=== PATIENT | male | born 1950 | race Hispanic/Latino ===

== ENCOUNTER 2017-11-21 09:02 | Emergency (ER) | payer BC, OTHER ==
[2017-11-21 09:16] VITALS: RESP 16; BMI 34.0
[2017-11-21 09:30] VITALS: TEMP 97.9; O2SAT 99
--- NOTE | 2017-11-21 11:13 | RAD ---
PROCEDURE: Radiographs of the right humerus. HISTORY: arm pain s/p trauma COMPARISON: None. FINDINGS: BONES: There is some bony thickening in the midshaft of the humerus. This is most likely secondary to a previous fracture. Clinical correlation is suggested SOFT TISSUES: Normal. OTHER FINDINGS: None. IMPRESSION: No acute findings
--- NOTE | 2017-11-21 11:14 | RAD ---
PROCEDURE: Radiographs of the Right Shoulder HISTORY: shoulder pain s/p trauma COMPARISON: No prior. FINDINGS: BONES: There is an area of cortical thickening in the mid humerus most likely due to previous fracture JOINTS: Normal. Glenohumeral and acromioclavicular joints preserved. No osteoarthritis. SOFT TISSUES: Normal. OTHER FINDINGS: None. IMPRESSION: No acute findings
--- NOTE | 2017-11-21 11:16 | RAD ---
PROCEDURE: Right Knee Radiographs. HISTORY: knee pain COMPARISON: None. FINDINGS: BONES: Normal. No fracture. JOINTS: Normal. No osteoarthritis. JOINT EFFUSION: None. OTHER FINDINGS: Mild degenerative changes IMPRESSION: No acute findings
--- NOTE | 2017-11-21 11:21 | ED PDOC ---
Arrival/HPI - General Chief Complaint: Trauma Time Seen by Provider: 11/21/17 09:29 Historian: Patient - History of Present Illness Narrative History of Present Illness (Text): 11/21/17 11:17 67yo male with PMHx of hypertension who was bib BLS for right shoulder/upper arm pain s/p trauma this morning. Patient states he slipped on a side walk and fell landing on his right shoulder this morning. Denies hitting his head anywhere. States he also bruised his right knee and admit mild pain to the knee. Denies LOC, nausea, focal weakness, any other complaint. Past Medical History - Provider Review Nursing Documentation Reviewed: Yes - Cardiac Hx Hypertension: Yes Hx Pacemaker: No - Hematological/Oncological Hx Blood Transfusions: No Hx Blood Transfusion Reaction: No - Musculoskeletal/Rheumatological Hx Musculoskeletal Disorders: No - Psychiatric Hx Emotional Abuse: No Hx Physical Abuse: No Hx Substance Use: No - Surgical History Hx Thyroidectomy: Yes - Anesthesia Hx Anesthesia Reactions: No Hx Malignant Hyperthermia: No - Suicidal Assessment Feels Threatened In Home Enviroment: No Family/Social History - Physician Review Nursing Documentation Reviewed: Yes Family/Social History: Unknown Family HX Smoking Status: Former Smoker Hx Alcohol Use: Yes (OCCASIONAL) Hx Substance Use: No Allergies/Home Meds Allergies/Adverse Reactions: Allergies No Known Allergies Allergy (Verified 02/28/13 10:44) Home Medications: Home Meds Medication Instructions Recorded Confirmed Levothyroxine Sodium 0.2 mg PO DAILY 03/01/13 11/21/17 [Levothyroxine] Lisinopril 5 mg PO DAILY 03/01/13 11/21/17 Review of Systems - Physician Review All systems were reviewed & negative as marked: Yes - Review of Systems Constitutional: Normal Eyes: Normal ENT: Normal Respiratory: Normal Cardiovascular: Normal Gastrointestinal: Normal Genitourinary Male: Normal Musculoskeletal: Arthralgias (right shoulder/knee) Skin: Normal Neurological: Normal Endocrine: Normal Hemo/Lymphatic: Normal Psychiatric: Normal Physical Exam Vital Signs Reviewed: Yes Vital Signs Temp Pulse Resp BP Pulse Ox 11/21/17 12:01 97.9 F 88 16 150/83 99 11/21/17 10:54 82 16 153/82 H 99 11/21/17 09:16 97.9 F 88 16 99 11/21/17 09:11 97.6 F 87 16 203/101 H 98 Temperature: Afebrile Blood Pressure: Normal Pulse: Regular Respiratory Rate: Normal Appearance: Positive for: Well-Appearing, Non-Toxic, Comfortable Pain Distress: None Mental Status: Positive for: Alert and Oriented X 3 - Systems Exam Head: Present: Atraumatic, Normocephalic Pupils: Present: PERRL Extroacular Muscles: Present: EOMI Conjunctiva: Present: Normal Mouth: Present: Moist Mucous Membranes Neck: Present: Normal Range of Motion Respiratory/Chest: Present: Clear to Auscultation, Good Air Exchange. No: Respiratory Distress, Accessory Muscle Use Cardiovascular: Present: Regular Rate and Rhythm, Normal S1, S2. No: Murmurs Abdomen: Present: Normal Bowel Sounds. No: Tenderness, Distention, Peritoneal Signs Back: Present: Normal Inspection Upper Extremity: Present: NORMAL PULSES, Tenderness (right shoulder/upper arm), Neurovascularly Intact. No: Cyanosis, Edema, Normal ROM (Decreased on abduction up to 90degree secondary to pain), Swelling, Erythema, Temperature Abnormalties, Deformity Lower Extremity: Present: Normal Inspection, NORMAL PULSES, Normal ROM, Neurovascularly Intact, Other (superfical abrasion to right anterior knee). No : Edema, Tenderness, Swelling, Deformity Neurological: Present: GCS=15, CN II-XII Intact, Speech Normal Skin: Present: Warm, Dry, Normal Color. No: Rashes Psychiatric: Present: Alert, Oriented x 3, Normal Insight, Normal Concentration Medical Decision Making ED Course and Treatment: 11/21/17 19:46 Right knee xray - Negative right shoulder/humerus negative Arm placed on a sling Pt declined pain medication, but later agreed to take Toradol. His BP improved. Result was DW the pt. He was referred to his PMD/ortho - RAD Interpretation Radiology Orders: 11/21/17 09:30 HUMERUS RIGHT [RAD] Stat SHOULDER RIGHT [RAD] Stat 11/21/17 09:31 KNEE RIGHT 2 VIEWS (AP & LAT) [RAD] Stat - Medication Orders Current Medication Orders: Discontinued Medications Ketorolac Tromethamine (Toradol) 60 mg IM STAT STA Stop: 11/21/17 11:34 Last Admin: 11/21/17 11:43 Dose: 60 mg MAR Pain Assessment Document 11/21/17 11:43 MS (Rec: 11/21/17 11:43 MS [id number]) Pain Reassessment Is this a pain reassessment? No Sleep Is patient sleeping during reassessment? No Presence of Pain Presence of Pain Yes Pain Scale Used Pain Scale Used Numeric Location Left, Right or Bilateral Right Pain Location Body Site Arm Description Description Intermittent Intensity of Pain at present 8 IM Administration Charges Document 11/21/17 11:43 MS (Rec: 11/21/17 11:43 MS [id number]) Injection Site MAR Injection Site Right Deltoid Charges for Administration # of IM Administrations 1 Disposition/Present on Arrival - Present on Arrival Any Indicators Present on Arrival: No History of DVT/PE: No History of Uncontrolled Diabetes: No Urinary Catheter: No History of Decub. Ulcer: No History Surgical Site Infection Following: None - Disposition Have Diagnosis and Disposition been Completed?: Yes Diagnosis: Shoulder pain, Knee pain Disposition: HOME/ ROUTINE Disposition Time: 11:25 Patient Plan: Discharge Condition: STABLE Discharge Instructions (ExitCare): Shoulder Pain (DC), Knee Pain Additional Instructions: follow up with your doctor/Orthopedist Return to ED for nay new or worsening symptoms Referrals: Champ Cantu MD [Primary Care Provider] - Follow up with primary Maggy Myers MD [Staff Provider] - Follow up with primary Forms: [employer] (Ukrainian)
[2017-11-21 12:02] VITALS: BP 150/83; PULSE 88
== END 2017-11-21 12:01 | disposition home or self-care (01) ==
LOC: ED 09:02
DX: M25.511 Pain in right shoulder (principal); M25.561 Pain in right knee; I10 Essential (primary) hypertension; Z87.891 Personal history of nicotine dependence
CPT/HCPCS: 73030; 73060; 73560; 96372; 99285; J1885

== ENCOUNTER 2018-07-16 12:14 | Inpatient (IN) | payer BC, MEDICARE ==
[2018-07-16 12:48] VITALS: BMI 35.4
--- NOTE | 2018-07-16 13:46 | ED PDOC ---
Arrival/HPI - General Chief Complaint: Male Genitourinary Time Seen by Provider: 07/16/18 13:29 Historian: Patient - History of Present Illness Narrative History of Present Illness (Text): 07/16/18 13:42 67 year old male, with past medical history of hypertension and nephrolithiasis, presents to the Emergency department accompanied by complaining of fever, chills, sweats and decreased urinary output since 2 days. Patient informs taking Tylenol this morning with improvement to symptoms. Patient reports visiting Dr. Cantu with the presented symptoms, who subsequently referred patient to the Emergency department for medical evaluation. Patient denies any other associated somatic complaints. Patient denies any headache, dizziness, chest pain, shortness of breath, dyspnea on exertion, cough, abdominal pain, nausea, vomiting, diarrhea, back pain, neck pain, hematuria, or any other complaints. PMD: Dr. Cantu Urologist: Dr. Welch Time/Duration: < week Symptom Onset: Gradual Symptom Course: Unchanged Activities at Onset: Light Context: Other (Referred by Dr. Cantu) Past Medical History - Provider Review Nursing Documentation Reviewed: Yes - Cardiac Hx Hypertension: Yes Hx Pacemaker: No - Hematological/Oncological Hx Blood Transfusions: No Hx Blood Transfusion Reaction: No - Musculoskeletal/Rheumatological Hx Musculoskeletal Disorders: No - Psychiatric Hx Emotional Abuse: No Hx Physical Abuse: No Hx Substance Use: No - Surgical History Hx Thyroidectomy: Yes - Anesthesia Hx Anesthesia: Yes Hx Anesthesia Reactions: No Hx Malignant Hyperthermia: No - Suicidal Assessment Feels Threatened In Home Enviroment: No Family/Social History - Physician Review Nursing Documentation Reviewed: Yes Family/Social History: Unknown Family HX Smoking Status: Former Smoker Hx Alcohol Use: Yes (OCCASIONAL) Hx Substance Use: No Allergies/Home Meds Allergies/Adverse Reactions: Allergies No Known Allergies Allergy (Verified 02/28/13 10:44) Home Medications: Home Meds Medication Instructions Recorded Confirmed Levothyroxine Sodium 0.2 mg PO DAILY 03/01/13 11/21/17 [Levothyroxine] Lisinopril 5 mg PO DAILY 03/01/13 11/21/17 Review of Systems - Physician Review All systems were reviewed & negative as marked: Yes - Review of Systems Constitutional: Fevers, Night Sweats Respiratory: absent: SOB, Cough Cardiovascular: absent: Chest Pain Gastrointestinal: absent: Abdominal Pain, Diarrhea, Nausea, Vomiting Genitourinary Male: Urinary Output Changes. absent: Hematuria Musculoskeletal: absent: Back Pain, Neck Pain Neurological: absent: Headache, Dizziness Physical Exam - Physical Exam Narrative Physical Exam (Text): 07/16/18 13:47 Gen: VS reviewed, alert, well developed, well nourished, nontoxic, mild distress. ENT: normal pharynx. Dry mucous membranes. Eye: EOMI, PERRL. Neck: no JVD, supple, no adenopathy. CV: regular rate, regular rhythm, no rubs, no murmur, no gallops, S1, S2, pulses equal and strong. Pulm: no distress, clear to auscultation, no wheeze, no rhonchi, breath sounds equal, no rales. Abd: soft, nontender, no guarding, no rebound, no rigidity, normal bowel sounds. Ext: no edema. Skin: good color, no rash, no cyanosis. Psych: responds appropriately to questions, normal affect. Neuro: oriented x 3, CN2-12 intact grossly, motor intact, sensation intact. Vital Signs Reviewed: Yes Vital Signs Temp Pulse Resp BP Pulse Ox 07/16/18 12:48 98.4 F 74 18 148/86 95 Temperature: Afebrile Blood Pressure: Normal Pulse: Regular Respiratory Rate: Normal Appearance: Positive for: Well-Appearing, Non-Toxic, Comfortable Pain Distress: None Mental Status: Positive for: Alert and Oriented X 3 Medical Decision Making ED Course and Treatment: 07/16/18 13:31 Impression: 67 year old male presents to the Emergency department complaining of fever, sweats and decreased urinary output. Plan: -- VBG -- CT of Abdomen/Pelvis -- IV Fluids -- Blood Culture -- Urine Culture -- Urinalysis -- Reassess and disposition Prior Visits: Notes and results from previous visits were reviewed. Progress Notes: 07/16/18 16:10 admit accepted by hospitalist, dr. tate, patient to be admitted for iv abx of pyelonephritis, no hemodynamic compromise, patient remained stable throughout ED course. patient's urologist is dr. welch - RAD Interpretation Narrative RAD Interpretations (Text): 07/16/18 15:40 CT of Abdomen reviewed by radiologist, shows: FINDINGS: LOWER THORAX: Unremarkable. LIVER: Unremarkable. No gross lesion or ductal dilatation. GALLBLADDER AND BILE DUCTS: Unremarkable. PANCREAS: Unremarkable. No gross lesion or ductal dilatation. SPLEEN: Unremarkable. ADRENALS: Unremarkable. No mass. KIDNEYS AND URETERS: There is mild perinephric stranding around the right kidney. Both renal collecting systems are mildly dilated. The ureters are also mildly dilated. There are no obstructing ureteral stones visualized. There is a layer of Calcium in the right side of the bladder. There is no discrete stones seen in the bladder. VASCULATURE: Unremarkable. No aortic aneurysm. Minimal aortic calcification BOWEL: Unremarkable. No obstruction. No gross mural thickening. APPENDIX: Unremarkable. Normal appendix. PERITONEUM: Unremarkable. No free fluid. No free air. LYMPH NODES: Unremarkable. No enlarged lymph nodes. BLADDER: As above REPRODUCTIVE: Prostate is calcified but normal in size BONES: No acute fracture. OTHER FINDINGS: None. IMPRESSION: There is mild perinephric stranding around the right kidney. Both renal collecting systems and ureters are mildly dilated. There are no obstructing ureteral stones visualized. There is a layer of Calcium in the right side of the bladder. There are no discrete stones seen in the bladder. Care Provider: Radiologist - Scribe Statement The provider has reviewed the documentation as recorded by the Scribe Tosin Salcido. All medical record entries made by the Scribe were at my direction and personally dictated by me. I have reviewed the chart and agree that the record accurately reflects my personal performance of the history, physical exam, medical decision making, and the department course for this patient. I have also personally directed, reviewed, and agree with the discharge instructions and disposition. Disposition/Present on Arrival - Present on Arrival Any Indicators Present on Arrival: No History of DVT/PE: No History of Uncontrolled Diabetes: No Urinary Catheter: No History of Decub. Ulcer: No History Surgical Site Infection Following: None - Disposition Have Diagnosis and Disposition been Completed?: Yes Diagnosis: Pyelonephritis Disposition: HOSPITALIZED Disposition Time: 16:11 Patient Plan: Admission Condition: STABLE Referrals: Champ Cantu MD [Primary Care Provider] - Follow up with primary Forms: [employer] (Nicaraguan)
[2018-07-16] MEDS: Sodium Chloride 0.9% 1,000 ML IV SCH ×2 (14:58→23:33)
[2018-07-16 15:00] LABS: BASO # 0.01 K/mm3 (0.0-2.0); BASO % 0.1 % (0.0-3.0); GRAN # 8.81 (1.4-6.5); GRAN % 85.2 % (50.0-68.0); HEMOGLOBIN 14.7 g/dL (14.0-18.0); LYMPH # 0.3 (1.2-3.4); MEAN CELL VOLUME 88.8 fl (80.0-105.0); MEAN CORPUSCULAR HEMOGLOBIN 30.5 pg (25.0-35.0); MEAN CORPUSCULAR HGB CONC 34.3 g/dl (31.0-37.0); MEAN PLATELET VOLUME 11.3 fl (7.0-11.0); MONO # 1.2 (0.1-0.6); MONO % 11.7 % (1.0-6.0); PLATELET COUNT 165 10^3/uL (120.0-450.0); RBC 4.82 10^6/uL (3.5-6.1); RED CELL DISTRIBUTION WIDTH 13.7 % (11.5-14.5); VENOUS BLOOD GAS BASE EXCESS 3.1 mmol/L (0.0-2.0); VENOUS BLOOD GAS PO2 26 mm/Hg (30-55); VENOUS BLOOD PH 7.37 (7.32-7.43); WHITE BLOOD COUNT 10.3 10^3/uL (4.5-11.0)
[2018-07-16 15:13] LABS: ALB/GLOB RATIO 1.1 (1.1-1.8); CALCIUM 8.7 mg/dL (8.4-10.5)
[2018-07-16 15:23] LABS: LYMPHOCYTE 5 % (22.0-35.0); MONOCYTE 10 % (1.0-6.0); NEUTROPHIL 85 % (50.0-70.0); PLATELET ESTIMATE NORMAL (NORMAL)
[2018-07-16 15:32] LABS: URINE BILIRUBIN NEGATIVE (NEGATIVE); URINE BLOOD LARGE (NEGATIVE); URINE GLUCOSE (UA) 250 mg/dL (NEGATIVE); URINE LEUKOCYTE ESTERASE MODERATE Leu/uL (NEGATIVE); URINE PROTEIN 100 mg/dL (<30 mg/dL)
[2018-07-16 15:33] LABS: URINE APPEARANCE SLIGHT-CLOUDY (CLEAR); URINE COLOR YELLOW (YELLOW)
--- NOTE | 2018-07-16 15:35 | CT ---
Date of service: 07/16/2018 PROCEDURE: CT Abdomen and Pelvis without intravenous contrast HISTORY: stone COMPARISON: None. TECHNIQUE: Technique. Contrast dose: Radiation dose: Total exam DLP = 1139.44 mGy-cm. This CT exam was performed using one or more of the following dose reduction techniques: Automated exposure control, adjustment of the mA and/or kV according to patient size, and/or use of iterative reconstruction technique. FINDINGS: LOWER THORAX: Unremarkable. LIVER: Unremarkable. No gross lesion or ductal dilatation. GALLBLADDER AND BILE DUCTS: Unremarkable. PANCREAS: Unremarkable. No gross lesion or ductal dilatation. SPLEEN: Unremarkable. ADRENALS: Unremarkable. No mass. KIDNEYS AND URETERS: There is mild perinephric stranding around the right kidney. Both renal collecting systems are mildly dilated. The ureters are also mildly dilated. There are no obstructing ureteral stones visualized. There is a layer of Calcium in the right side of the bladder. There is no discrete stones seen in the bladder. VASCULATURE: Unremarkable. No aortic aneurysm. Minimal aortic calcification BOWEL: Unremarkable. No obstruction. No gross mural thickening. APPENDIX: Unremarkable. Normal appendix. PERITONEUM: Unremarkable. No free fluid. No free air. LYMPH NODES: Unremarkable. No enlarged lymph nodes. BLADDER: As above REPRODUCTIVE: Prostate is calcified but normal in size BONES: No acute fracture. OTHER FINDINGS: None. IMPRESSION: There is mild perinephric stranding around the right kidney. Both renal collecting systems and ureters are mildly dilated. There are no obstructing ureteral stones visualized. There is a layer of Calcium in the right side of the bladder. There are no discrete stones seen in the bladder.
[2018-07-16] MEDS ORDERED: cefTRIAXone 2 GM IN NS 2 GM/100 ML BAG IVPB STA (15:42)
[2018-07-16 15:50] LABS: URINE BACTERIA LARGE (NEG); URINE EPITHELIAL CELLS 0 - 2 /hpf (0-5); URINE WBC TNTC /hpf (0-6)
[2018-07-16] MEDS ORDERED: Dextrose 50% SYRINGE Inj (50 ml) IV PRN (16:58)
--- NOTE | 2018-07-16 17:18 | CP.PCM.HP ---
<Juan Luis Santillan - Last Filed: 07/16/18 18:24> History of Present Illness - History of Present Illness History of Present Illness: Juan Luis Santillan DO, PGY-1 Hospitalist Admission History and Physical for Dr. Harris CC: fever, chills, dysuria HPI: Mr. Bennett is a 67 year old male with PMH of HTN, nephrolithiasis, thyroid CA (s/p total thyroidectomy), DM2, CAD (s/p stents in ), prostate CA (s/p radiation treatment), and COPD presented to ED with worsening fever, chills, let hargy, increased urinary frequency, and dysuria. He appears acutely ill at the time of examination and most of the history was provided by his at bedside. His states that he has been feeling worse for the past few days and has had worsening dysuria. His Tmax at home was 102.5, she gave him tylenol, and it went down. This prompted them to go and see his PMH, Dr. Cantu, who advised them to go to ED for further evaluation. Currently, he endorses fever, chills, dysuria, increased frequency, and some suprapubic pain with palpation but denies CP, SOB, nausea/vomiting, PARKER, or blurred vision. PMH: HTN, nephrolithiasis, thyroid CA (s/p total thyroidectomy), DM2, CAD (s/p stents in ), prostate CA (s/p radiation treatment), and COPD PSH: PCI with stents in , total thyroidectomy Home medications: omeprazole 40 mg daily, bystolic 10 mg daily, pravastatin 40 mg daily, levothyroxine 0.3 mg daily, lisinopril 20 mg daily, januvia 100 mg daily, glimepiride 2 mg daily Fam Hx: reviewed, non-contributory Soc Hx: former smoker quit 13 years ago, denies alcohol or drug use Present on Admission - Present on Admission Any Indicators Present on Admission: No History of DVT/PE: No History of Uncontrolled Diabetes: No Urinary Catheter: No Decubitus Ulcer Present: No Review of Systems - Constitutional Constitutional: Chills, Fever - Cardiovascular Cardiovascular: absent: Chest Pain, Dyspnea - Respiratory Respiratory: absent: Cough, Dyspnea, Wheezing - Gastrointestinal Gastrointestinal: absent: Abdominal Pain, Nausea, Vomiting - Genitourinary Genitourinary: Change in Urinary Stream, Difficulty Urinating, Dysuria, Flank Pain, Urinary Frequency. absent: Hematuria, Urinary Incontinence - Musculoskeletal Musculoskeletal: Back Pain. absent: Numbness - Neurological Neurological: absent: Confusion, Syncope, Tremor Past Patient History - Past Social History Smoking Status: Former Smoker - CARDIAC Hx Hypertension: Yes Hx Pacemaker: No - HEMATOLOGICAL/ONCOLOGICAL Hx Blood Transfusions: No Hx Blood Transfusion Reaction: No - MUSCULOSKELETAL/RHEUMATOLOGICAL Hx Musculoskeletal Disorders: No - PSYCHIATRIC Hx Emotional Abuse: No Hx Physical Abuse: No Hx Substance Use: No - SURGICAL HISTORY Hx Thyroidectomy: Yes - ANESTHESIA Hx Anesthesia: Yes Hx Anesthesia Reactions: No Hx Malignant Hyperthermia: No Meds Allergies/Adverse Reactions: Allergies Allergy/AdvReac Type Severity Reaction Status Date / Time No Known Allergies Allergy Verified 02/28/13 10:44 Physical Exam - Constitutional Appears: No Acute Distress Additional comments: NAD but acutely ill-appearing, sleepy but arousable - Head Exam Head Exam: ATRAUMATIC, NORMOCEPHALIC - Eye Exam Eye Exam: EOMI, Normal appearance, PERRL - ENT Exam ENT Exam: Mucous Membranes Moist - Neck Exam Neck exam: Positive for: Full Rom, Normal Inspection - Respiratory Exam Respiratory Exam: Clear to Auscultation Bilateral, NORMAL BREATHING PATTERN. absent: Accessory Muscle Use, Rales, Rhonchi, Wheezes, Respiratory Distress - Cardiovascular Exam Cardiovascular Exam: REGULAR RHYTHM, RRR, +S1, +S2. absent: Diastolic murmur, Gallop, Rubs, Systolic Murmur - GI/Abdominal Exam GI & Abdominal Exam: Normal Bowel Sounds. absent: Guarding, Tenderness - Extremities Exam Extremities exam: Positive for: full ROM, normal inspection. Negative for: pedal edema - Back Exam Back exam: NORMAL INSPECTION. absent: CVA tenderness (L), CVA tenderness (R), paraspinal tenderness - Neurological Exam Neurological exam: Alert, Oriented x3 - Psychiatric Exam Psychiatric exam: Normal Affect, Normal Mood - Skin Skin Exam: Dry, Intact, Warm Results - Vital Signs Recent Vital Signs: Last Vital Signs Temp 98.4 F 07/16/18 12:48 Pulse 65 07/16/18 15:47 Resp 18 07/16/18 15:47 BP 141/74 07/16/18 15:47 Pulse Ox 96 07/16/18 15:47 - Labs Result Diagrams: 07/16/18 14:54 07/16/18 14:54 Labs: Laboratory Results - last 24 hr 07/16/18 07/16/18 07/16/18 14:54 14:54 14:54 WBC 10.3 RBC 4.82 Hgb 14.7 Hct 42.8 MCV 88.8 MCH 30.5 MCHC 34.3 RDW 13.7 Plt Count 165 MPV 11.3 H Gran % 85.2 H Lymph % (Auto) 3.0 L [place] % (Auto) 11.7 H Eos % (Auto) 0.0 L Baso % (Auto) 0.1 Gran # 8.81 H Lymph # (Auto) 0.3 L [place] # (Auto) 1.2 H Eos # (Auto) 0.0 Baso # (Auto) 0.01 Neutrophils % (Manual) 85 H Lymphocytes % (Manual) 5 L Monocytes % (Manual) 10 H Platelet Evaluation Normal pO2 26 L VBG pH 7.37 VBG pCO2 51.0 VBG HCO3 29.5 H VBG Total CO2 31.1 H VBG O2 Sat (Calc) 50.0 VBG Base Excess 3.1 H VBG Potassium 4.0 Sodium 136.0 137 Chloride 96.0 L 96 L Glucose 306 H Lactate 2.6 H FiO2 21.0 Potassium 3.9 Carbon Dioxide 29 Anion Gap 16 BUN 41 H Creatinine 2.3 H Est GFR ( Amer) 35 Est GFR (Non-Af Amer) 29 Random Glucose 287 H Calcium 8.7 Total Bilirubin 2.6 H AST 38 ALT 45 Alkaline Phosphatase 83 Total Protein 7.7 Albumin 4.0 Globulin 3.7 Albumin/Globulin Ratio 1.1 Venous Blood Potassium 4.0 Urine Color Urine Appearance Urine pH Ur Specific [place] Urine Protein Urine Glucose (UA) Urine Ketones Urine Blood Urine Nitrate Urine Bilirubin Urine Urobilinogen Ur Leukocyte Esterase Urine RBC Urine WBC Ur Epithelial Cells Urine Bacteria 07/16/18 15:16 WBC RBC Hgb Hct MCV MCH MCHC RDW Plt Count MPV Gran % Lymph % (Auto) [place] % (Auto) Eos % (Auto) Baso % (Auto) Gran # Lymph # (Auto) [place] # (Auto) Eos # (Auto) Baso # (Auto) Neutrophils % (Manual) Lymphocytes % (Manual) Monocytes % (Manual) Platelet Evaluation pO2 VBG pH VBG pCO2 VBG HCO3 VBG Total CO2 VBG O2 Sat (Calc) VBG Base Excess VBG Potassium Sodium Chloride Glucose Lactate FiO2 Potassium Carbon Dioxide Anion Gap BUN Creatinine Est GFR ( Amer) Est GFR (Non-Af Amer) Random Glucose Calcium Total Bilirubin AST ALT Alkaline Phosphatase Total Protein Albumin Globulin Albumin/Globulin Ratio Venous Blood Potassium Urine Color Yellow Urine Appearance Slight-cloudy Urine pH 6.0 Ur Specific [place] 1.020 Urine Protein 100 H Urine Glucose (UA) 250 H Urine Ketones Negative Urine Blood Large H Urine Nitrate Negative Urine Bilirubin Negative Urine Urobilinogen 1.0 H Ur Leukocyte Esterase Moderate H Urine RBC 5 - 10 Urine WBC Tntc Ur Epithelial Cells 0 - 2 Urine Bacteria Large Assessment & Plan - Assessment and Plan (Free Text) Assessment: 67 yo M with PMH of HTN, nephrolithiasis, thyroid CA (s/p total thyroidectomy), DM2, CAD (s/p stents in ), prostate CA (s/p radiation treatment), and COPD presents to ED with sepsis 2/2 pyelonephritis. Plan: 1. Sepsis Likely 2/2 underlying pyelonephritis UA with TNTC pyuria, leukocyte eserase, large blood CTAP c/w R-sided perinephric stranding, although no CVA tenderness on exam Currently lactate 2.6, normotensive, RRR Continue rocephin, zosyn given in ED Monitor closely for s/sx of worsening sepsis or septic shock Continue NS @ 150 cc/hr Repeat VBG shock panel after receiving abx and monitor lactate F/u blood, urine cx, procal results 2. ANIBAL Likely 2/2 underlying sepsis and/or dehydration Continue NS @ 150 Continue to monitor for improvement Hold lisinopril for now If not improving, consider further w/u for ANIBAL including urine electrolytes 3. Hx DM2 Will get baseline A1c for this admission Blood sugar elevated in ED to 287 D/c all oral anti-hyperglycemics while in hospital ISS medium protocol while admitted 6 units of levemir nightly ACHS POC fingerstick glucose HHD consistent CHO diet DVT/GI PPX: Sc heparin, protonx Full Code HHD consistent CHO Monitor on med/surg Case and plan reviewed and discussed with my attending Dr. Steven Santillan, DO IM Resident PGY-1 <Jose Maria Harris - Last Filed: 07/17/18 17:05> Results - Vital Signs Recent Vital Signs: Last Vital Signs Temp 101.5 F H 07/17/18 15:06 Pulse 100 H 07/17/18 15:05 Resp 20 07/17/18 07:42 BP 180/90 H 07/17/18 15:05 Pulse Ox 98 07/17/18 07:42 - Labs Result Diagrams: 07/17/18 15:54 07/17/18 15:20 Labs: Laboratory Results - last 24 hr 07/16/18 07/16/18 07/16/18 14:54 18:47 18:54 WBC RBC Hgb Hct MCV MCH MCHC RDW Plt Count MPV Gran % Lymph % (Auto) [place] % (Auto) Eos % (Auto) Baso % (Auto) Gran # Lymph # (Auto) [place] # (Auto) Eos # (Auto) Baso # (Auto) pCO2 pO2 26 L 76 H HCO3 ABG pH ABG Total CO2 ABG O2 Saturation ABG Base Excess ABG Potassium VBG pH 7.37 7.46 H VBG pCO2 51.0 35.0 L VBG HCO3 29.5 H 24.9 VBG Total CO2 31.1 H 26.0 VBG O2 Sat (Calc) 50.0 97.3 H VBG Base Excess 3.1 H 1.4 VBG Potassium 4.0 3.5 L Sodium 136.0 137.0 Chloride 96.0 L 101.0 Glucose 306 H 311 H Lactate 2.6 H 1.7 FiO2 21.0 21.0 Potassium Carbon Dioxide Anion Gap BUN Creatinine Est GFR ( Amer) Est GFR (Non-Af Amer) POC Glucose (mg/dL) 288 H Random Glucose Hemoglobin A1c Calcium Phosphorus Magnesium Total Bilirubin AST ALT Alkaline Phosphatase Troponin I Total Protein Albumin Globulin Albumin/Globulin Ratio Triglycerides Cholesterol LDL Cholesterol Direct HDL Cholesterol Arterial Blood Potassium Venous Blood Potassium 4.0 3.5 L Influenza Typ A,B (EIA) 07/17/18 07/17/18 07/17/18 06:20 06:20 06:20 WBC 10.8 RBC 4.60 Hgb 14.0 Hct 40.6 L MCV 88.3 MCH 30.4 MCHC 34.5 RDW 14.0 Plt Count 151 MPV 11.0 Gran % 86.2 H Lymph % (Auto) 5.6 L [place] % (Auto) 8.1 H Eos % (Auto) 0.0 L Baso % (Auto) 0.1 Gran # 9.33 H Lymph # (Auto) 0.6 L [place] # (Auto) 0.9 H Eos # (Auto) 0.0 Baso # (Auto) 0.01 pCO2 pO2 HCO3 ABG pH ABG Total CO2 ABG O2 Saturation ABG Base Excess ABG Potassium VBG pH VBG pCO2 VBG HCO3 VBG Total CO2 VBG O2 Sat (Calc) VBG Base Excess VBG Potassium Sodium 140 Chloride 101 Glucose Lactate FiO2 Potassium 3.8 Carbon Dioxide 29 Anion Gap 14 BUN 43 H Creatinine 2.4 H Est GFR ( Amer) 33 Est GFR (Non-Af Amer) 27 POC Glucose (mg/dL) Random Glucose 292 H Hemoglobin A1c 7.6 H Calcium 8.3 L Phosphorus 2.8 Magnesium 2.3 H Total Bilirubin 1.5 H AST 30 ALT 35 Alkaline Phosphatase 85 Troponin I Total Protein 7.2 Albumin 3.5 Globulin 3.7 Albumin/Globulin Ratio 1.0 L Triglycerides 244 H Cholesterol 149 LDL Cholesterol Direct 82 HDL Cholesterol 17 L Arterial Blood Potassium Venous Blood Potassium Influenza Typ A,B (EIA) 07/17/18 07/17/18 07/17/18 07:22 08:30 10:41 WBC RBC Hgb Hct MCV MCH MCHC RDW Plt Count MPV Gran % Lymph % (Auto) [place] % (Auto) Eos % (Auto) Baso % (Auto) Gran # Lymph # (Auto) [place] # (Auto) Eos # (Auto) Baso # (Auto) pCO2 pO2 HCO3 ABG pH ABG Total CO2 ABG O2 Saturation ABG Base Excess ABG Potassium VBG pH VBG pCO2 VBG HCO3 VBG Total CO2 VBG O2 Sat (Calc) VBG Base Excess VBG Potassium Sodium Chloride Glucose Lactate FiO2 Potassium Carbon Dioxide Anion Gap BUN Creatinine Est GFR ( Amer) Est GFR (Non-Af Amer) POC Glucose (mg/dL) 244 H 239 H Random Glucose Hemoglobin A1c Calcium Phosphorus Magnesium Total Bilirubin AST ALT Alkaline Phosphatase Troponin I Total Protein Albumin Globulin Albumin/Globulin Ratio Triglycerides Cholesterol LDL Cholesterol Direct HDL Cholesterol Arterial Blood Potassium Venous Blood Potassium Influenza Typ A,B (EIA) Negative for flu a/b 07/17/18 07/17/18 07/17/18 14:19 14:35 15:20 WBC RBC Hgb Hct MCV MCH MCHC RDW Plt Count MPV Gran % Lymph % (Auto) [place] % (Auto) Eos % (Auto) Baso % (Auto) Gran # Lymph # (Auto) [place] # (Auto) Eos # (Auto) Baso # (Auto) pCO2 39 pO2 104.0 H HCO3 21.0 ABG pH 7.34 L ABG Total CO2 22.2 ABG O2 Saturation 98.4 H ABG Base Excess -4.4 L ABG Potassium 3.8 VBG pH VBG pCO2 VBG HCO3 VBG Total CO2 VBG O2 Sat (Calc) VBG Base Excess VBG Potassium Sodium 140.0 140 Chloride 106.0 104 Glucose 255 H Lactate 4.3 H* FiO2 50.0 Potassium 3.4 L Carbon Dioxide 24 Anion Gap 16 BUN 44 H Creatinine 2.3 H Est GFR ( Amer) 35 Est GFR (Non-Af Amer) 29 POC Glucose (mg/dL) 270 H Random Glucose 283 H Hemoglobin A1c Calcium 8.2 L Phosphorus Magnesium Total Bilirubin 1.5 H AST 33 ALT 40 Alkaline Phosphatase 89 Troponin I 0.04 Total Protein 7.3 Albumin 3.6 Globulin 3.7 Albumin/Globulin Ratio 1.0 L Triglycerides Cholesterol LDL Cholesterol Direct HDL Cholesterol Arterial Blood Potassium 3.8 Venous Blood Potassium Influenza Typ A,B (EIA) 07/17/18 07/17/18 07/17/18 15:30 15:54 16:34 WBC 8.6 RBC 4.67 Hgb 14.3 Hct 41.0 L MCV 87.8 MCH 30.6 MCHC 34.9 RDW 14.1 Plt Count 136 MPV 11.2 H Gran % Lymph % (Auto) [place] % (Auto) Eos % (Auto) Baso % (Auto) Gran # Lymph # (Auto) [place] # (Auto) Eos # (Auto) Baso # (Auto) pCO2 pO2 HCO3 ABG pH ABG Total CO2 ABG O2 Saturation ABG Base Excess ABG Potassium VBG pH VBG pCO2 VBG HCO3 VBG Total CO2 VBG O2 Sat (Calc) VBG Base Excess VBG Potassium Sodium Chloride Glucose Lactate FiO2 Potassium Carbon Dioxide Anion Gap BUN Creatinine Est GFR ( Amer) Est GFR (Non-Af Amer) POC Glucose (mg/dL) 240 H 261 H Random Glucose Hemoglobin A1c Calcium Phosphorus Magnesium Total Bilirubin AST ALT Alkaline Phosphatase Troponin I Total Protein Albumin Globulin Albumin/Globulin Ratio Triglycerides Cholesterol LDL Cholesterol Direct HDL Cholesterol Arterial Blood Potassium Venous Blood Potassium Influenza Typ A,B (EIA) Attending/Attestation - Attestation I have personally seen and examined this patient.: Yes I have fully participated in the care of the patient.: Yes I have reviewed all pertinent clinical information: Yes Notes (Text): 07/17/18 17:02 Medical record note made by the resident after discussion with my direction and input after the patient was personally seen and examined by me. I have reviewed the chart and agree that the record accurately reflects by personal performance of the history, physical exam, data review, and medical decision-making, in the course for the patient. I have also personally directed the plan of care. 67 year old male with PMH of HTN, nephrolithiasis, thyroid CA (s/p total thyroidectomy), DM2, CAD (s/p stents in ), prostate CA , and COPD is admitted with sepsis due to Pyelonephritis and acute renal failure. Agreed with IV zosyn, will follow up blood and urine cultures. Continue IV hydration, follow up BUN/Creatinin with IV hydration. We will hold Lisinopril.Avoid Nephrotoxic medications. Management plan was discussed in detail with patient and . Education was provided.
[2018-07-16] MEDS: Piperacillin/Tazobact 3.375 gm 100 ML IVPB SCH ×2 (17:27→23:55)
[2018-07-16 18:56] LABS: VENOUS BLOOD GAS BASE EXCESS 1.4 mmol/L (0.0-2.0); VENOUS BLOOD GAS PO2 76 mm/Hg (30-55); VENOUS BLOOD PH 7.46 (7.32-7.43)
[2018-07-16] MEDS ORDERED: Sodium Chloride 0.9% 1,000 ML IV STA (20:01)
--- NOTE | 2018-07-16 22:08 | CARD ---
APPROVED REPORT Date of service: 07/16/2018 EKG Measurement Heart [id number] <Conclusion> Normal sinus rhythm Left axis deviation Abnormal ECG
[2018-07-16] MEDS ORDERED: Albuterol-Ipratrop 3 mg / 0.5 (3 ml) UD IH STA (23:10)
[2018-07-16] MEDS: Insulin Reg-MEDIUM-Coverage SC SCH (23:32)
[2018-07-16] MEDS: Insulin Detemir 100 units/ml Vial (Levemir) SC SCH (23:56)
[2018-07-17] MEDS: Sodium Chloride 0.9% 1,000 ML IV SCH (00:59)
[2018-07-17] MEDS: Pantoprazole 40 mg EC Tab PO SCH (05:55)
[2018-07-17 07:16] LABS: BASO # 0.01 K/mm3 (0.0-2.0); BASO % 0.1 % (0.0-3.0); GRAN # 9.33 (1.4-6.5); GRAN % 86.2 % (50.0-68.0); LYMPH # 0.6 (1.2-3.4); LYMPH % 5.6 % (22.0-35.0); MEAN CELL VOLUME 88.3 fl (80.0-105.0); MEAN CORPUSCULAR HEMOGLOBIN 30.4 pg (25.0-35.0); MEAN CORPUSCULAR HGB CONC 34.5 g/dl (31.0-37.0); MONO # 0.9 (0.1-0.6); MONO % 8.1 % (1.0-6.0); RBC 4.6 10^6/uL (3.5-6.1); WHITE BLOOD COUNT 10.8 10^3/uL (4.5-11.0)
[2018-07-17 07:20] LABS: ALBUMIN 3.5 g/dL (3.0-4.8); CALCIUM 8.3 mg/dL (8.4-10.5)
[2018-07-17] MEDS: Insulin Reg-MEDIUM-Coverage SC SCH ×4 (08:28→22:23)
--- NOTE | 2018-07-17 09:30 | RAD ---
Date of service: 07/17/2018 HISTORY: wheezing COMPARISON: Chest radiographs 05/13/2014. FINDINGS: LUNGS: No active pulmonary disease. PLEURA: No significant pleural effusion identified, no pneumothorax apparent. CARDIOVASCULAR: No aortic atherosclerotic calcification present. Cardiomegaly is difficult to exclude however of frontal technique likely magnified true cardiac silhouette. No pulmonary vascular congestion. OSSEOUS STRUCTURES: No significant abnormalities. VISUALIZED UPPER ABDOMEN: Normal. OTHER FINDINGS: None. IMPRESSION: Prominent cardiac silhouette, possibly at least in part related to technical magnification. Clinically correlate further. No pulmonary vascular congestion or infiltrate bilaterally.
[2018-07-17] MEDS: Levothyroxine 200 MCG TAB PO SCH (09:38)
[2018-07-17] MEDS ORDERED: cefTRIAXone 1 gm 1 GM/100 ML BAG IVPB SCH (10:00)
[2018-07-17] MEDS ORDERED: Piperacillin/Tazobact 2.25gm 2.25 GM/100 ML BAG IVPB STA (14:42)
[2018-07-17 14:48] LABS: ARTERIAL BLOOD GAS O2 SAT 98.4 % (95-98); ARTERIAL BLOOD GAS PCO2 39 mm/Hg (35-45); ARTERIAL BLOOD GAS PH 7.34 (7.35-7.45); ARTERIAL BLOOD GAS TCO2 22.2 mmol.L (22-28)
[2018-07-17] MEDS ORDERED: Sodium Chloride 0.9% 1,000 ML IV STA (14:53)
[2018-07-17] MEDS ORDERED: Vancomycin 1gm in NS 250ml 1 GM/250 ML BAG IVPB SCH (15:00)
[2018-07-17] MEDS: MethylPREDNISolone 40 mg Vial IVP SCH ×2 (15:05→22:23)
--- NOTE | 2018-07-17 15:34 | RAD ---
Date of service: 07/17/2018 HISTORY: sob COMPARISON: No prior. FINDINGS: LUNGS: No active pulmonary disease. PLEURA: No significant pleural effusion identified, no pneumothorax apparent. CARDIOVASCULAR: No aortic atherosclerotic calcification present. Moderate cardiomegaly no pulmonary vascular congestion. OSSEOUS STRUCTURES: No significant abnormalities. VISUALIZED UPPER ABDOMEN: Normal. OTHER FINDINGS: None. IMPRESSION: No active disease.
[2018-07-17 15:57] LABS: HEMOGLOBIN 14.3 g/dL (14.0-18.0); MEAN CELL VOLUME 87.8 fl (80.0-105.0); MEAN CORPUSCULAR HEMOGLOBIN 30.6 pg (25.0-35.0); MEAN CORPUSCULAR HGB CONC 34.9 g/dl (31.0-37.0); MEAN PLATELET VOLUME 11.2 fl (7.0-11.0); RBC 4.67 10^6/uL (3.5-6.1); RED CELL DISTRIBUTION WIDTH 14.1 % (11.5-14.5); WHITE BLOOD COUNT 8.6 10^3/uL (4.5-11.0)
--- NOTE | 2018-07-17 16:00 | PCM.RRT ---
<Jr Tsang - Last Filed: 07/17/18 17:35> FORESTRY FOREMAN Nurse Assessment - Situation Date: 07/17/18 Time FORESTRY FOREMAN was called: 14:17 FORESTRY FOREMAN Responder Arrival Time: 14:18 FORESTRY FOREMAN Location:: [address] [place] [address] Room Number: 560 FORESTRY FOREMAN Reason for Call: O2 Saturation below 90% FORESTRY FOREMAN Called By: RN - IV IV Inserted during FORESTRY FOREMAN?: No - Respiratory Oxygen Delivery Method: Nasal Cannula @L/min Oxygen Flow Rate: 2 Received Nebulizer Treatments:: Yes Was the Patient Ventilated with Bag/Mask 100% O2?: No Secretions Suctioned?: No Was the Patient Intubated?: No Was the Patient Placed on a Ventilator?: No - Medication Medications Administered During FORESTRY FOREMAN: Lasix 40 IVP - Diagnostic Test Ordered EKG: Yes Chest X-Ray: Yes CT Scan: No - Stat Labs Ordered FORESTRY FOREMAN Stat Labs Ordered: CBC, BMP, LACTIC ACID, BLOOD C&S X2, ABG CPR started during FORESTRY FOREMAN?: No - Vital Signs Vital Sign: Rapid Response Vital Sign Blood Pressure 240/90 Pulse Rate 110 Respiratory Rate 24 Temperature 101.5 F Oxygen Saturation 87 - Time FORESTRY FOREMAN Ended Time FORESTRY FOREMAN Ended: 15:00 - Vital Signs at end of FORESTRY FOREMAN Vital Signs at end of FORESTRY FOREMAN: Rapid Response End Vital Sign Blood Pressure 180/90 Pulse Rate 100 Respiratory Rate 18 O2 Sat by Pulse Oximetry 100 - Recommendations Notifications: Attending Physician, Family or Designated Caregiver I.Reason for FORESTRY FOREMAN - A) Acute Change in Patient: Subjective: Subjective/Objective FORESTRY FOREMAN was called on this 67 year old male with pertinent medical history of ischemic heart disease and urosepsis for acute shortness of breath and shivering. When I arrived, the patient was unable to provide a history; was at bedside as well as RN and primary team, who all gave history that patient became acutely short of breath, agitated, with sats dropping. Vitals were not stable, with sats of 90%, HR of 110s, BP of 220/90s, and Temp of 101.1. Physical exam revealed wheezes anteriorly and posteriorly but no crackles, no murmur, no bilateral extremity swelling, and soft/nontender abdomen. We gave patient solumederol, 2 duoneb treatments, rectal tylenol, and obtained EKG, troponin, as well as shifting patient to telemetry. ABG revealed 7.34 pH, 39 CO2, will obtain HCO3 from CMP. CXR revealed possible new infiltrate. Assessment 67 year old male with respiratory distress, now resolved, likely 2/2 new onset PNA as well as underlying COPD. Chills likely 2/2 Urosepsis Plan - Obtain EKG, troponin - Will change Rocephin to Zosyn - Transfer to telemetry for closer observation of vitals - Neurological Status (Select all that apply): Alert, Verbal, Follows Commands - Respiratory Oxygen Delivery Method: Nasal Cannula @L/min Oxygen Flow Rate: 2 - Constitutional Appears: Non-toxic, In Acute Distress, Chronically Ill - Head Head Exam: ATRAUMATIC, NORMAL INSPECTION, NORMOCEPHALIC - Eyes Eye Exam: EOMI, Normal appearance, PERRL - Respiratory Exam Respiratory Exam: Wheezes, Respiratory Distress. absent: Stridor - Cardiovascular Exam Cardiovascular Exam: Tachycardia, REGULAR RHYTHM. absent: Murmur - GI/Abdominal Exam GI & Abdominal Exam: Normal Bowel Sounds - Neurological Exam Neurological Exam: Alert, Awake, CN II-XII Intact - Extremities Exam Extremities Exam: Full ROM, Normal Capillary Refill, Normal Inspection <Jose Maria Harris - Last Filed: 07/19/18 17:52> FORESTRY FOREMAN Nurse Assessment - Vital Signs Vital Sign: Rapid Response Vital Sign Blood Pressure 240/90 Pulse Rate 110 Respiratory Rate 24 Temperature 101.5 F Oxygen Saturation 87 - Vital Signs at end of FORESTRY FOREMAN Vital Signs at end of FORESTRY FOREMAN: Rapid Response End Vital Sign Blood Pressure 180/90 Pulse Rate 100 Respiratory Rate 18 O2 Sat by Pulse Oximetry 100 Attending/Attestation - Attestation I have personally seen and examined this patient.: Yes I have fully participated in the care of the patient.: Yes I have reviewed all pertinent clinical information, including history, physical exam and plan: Yes Notes (Text): 07/19/18 17:51 Medical record note made by the resident after discussion with my direction and input after the patient was personally seen and examined by me. I have reviewed the chart and agree that the record accurately reflects by personal performance of the history, physical exam, data review, and medical decision-making, in the course for the patient. I have also personally directed the plan of care
[2018-07-17 16:07] LABS: ALBUMIN 3.6 g/dL (3.0-4.8); CALCIUM 8.2 mg/dL (8.4-10.5)
[2018-07-17 16:19] LABS: TROPONIN I 0.04 ng/mL
--- NOTE | 2018-07-17 16:21 | CARD ---
APPROVED REPORT Date of service: 07/17/2018 EKG Measurement Heart [id number] <Conclusion> Sinus tachycardia with premature atrial complexes Minimal voltage criteria for LVH, may be normal variant Borderline ECG
[2018-07-17 17:47] LABS: CREATININE,RANDOM URINE 50 mg/dL
[2018-07-17 18:48] LABS: VENOUS BLOOD GAS BASE EXCESS -1.6 mmol/L (0.0-2.0); VENOUS BLOOD GAS PO2 106 mm/Hg (30-55); VENOUS BLOOD PH 7.44 (7.32-7.43)
--- NOTE | 2018-07-17 19:41 | CP.PCM.PN ---
<Sal Singh - Last Filed: 07/17/18 19:42> Subjective - Date & Time of Evaluation Date of Evaluation: 07/17/18 Time of Evaluation: 07:00 - Subjective Subjective: Pt seen and examined at bedside. Pt laying on side stating he is in pain Objective - Vital Signs/Intake and Output Vital Signs (last 24 hours): Temp Pulse Resp BP Pulse Ox 98.5 F 92 H 21 136/75 98 07/17/18 18:14 07/17/18 18:14 07/17/18 18:14 07/17/18 18:14 07/17/18 07:42 - Medications Medications: Current Medications Acetaminophen (Tylenol 325mg Tab) 650 mg PO Q6H PRN PRN Reason: Fever >100.4 F Last Admin: 07/17/18 15:06 Dose: 650 mg Atorvastatin Calcium (Lipitor) 10 mg PO DIN [facility] Last Admin: 07/17/18 17:51 Dose: 10 mg Dextrose (Dextrose 50% Inj) 0 ml IV STAT PRN; Protocol PRN Reason: Hypoglycemia Protocol Heparin Sodium (Porcine) (Heparin) 5,000 units SC Q12 [facility]; Protocol Last Admin: 07/17/18 09:37 Dose: 5,000 units Hydralazine HCl (Apresoline) 10 mg IVP Q6 PRN PRN Reason: Systolic Blood Pressure Last Admin: 07/17/18 15:05 Dose: 10 mg Hydralazine HCl (Apresoline) 25 mg PO TID [facility] Last Admin: 07/17/18 17:50 Dose: 25 mg Sodium Chloride (Sodium Chloride 0.9%) 1,000 mls @ 150 mls/hr IV .Q6H40M [facility] Last Admin: 07/17/18 00:59 Dose: 150 mls/hr Dextrose (Dextrose 5% In Water 1000 Ml) 1,000 mls @ 0 mls/hr IV .Q0M PRN; Protocol PRN Reason: Hypoglycemia Protocol Insulin Detemir (Levemir) 6 unit SC HS [facility] Last Admin: 07/16/18 23:56 Dose: 6 units Insulin Human Regular (Humulin R Med) 0 units SC ACHS [facility]; Protocol Last Admin: 07/17/18 17:51 Dose: 5 u Levothyroxine Sodium (Synthroid) 200 mcg PO DAILY [facility] Last Admin: 07/17/18 09:38 Dose: 200 mcg Methylprednisolone (Solu-Medrol) 40 mg IVP Q12 [facility] Last Admin: 07/17/18 15:05 Dose: 40 mg Pantoprazole Sodium (Protonix Ec Tab) 40 mg PO 0600 [facility] Last Admin: 07/17/18 05:55 Dose: 40 mg - Labs Labs: 07/17/18 15:54 07/17/18 15:20 - Constitutional Appears: Toxic - Head Exam Head Exam: ATRAUMATIC, NORMAL INSPECTION, NORMOCEPHALIC - Eye Exam Eye Exam: EOMI - ENT Exam ENT Exam: Mucous Membranes Moist, Normal Exam - Neck Exam Neck Exam: Normal Inspection - Respiratory Exam Respiratory Exam: Clear to Ausculation Bilateral, NORMAL BREATHING PATTERN. absent: Accessory Muscle Use - Cardiovascular Exam Cardiovascular Exam: RRR, +S1, +S2. absent: Diastolic murmur, Murmur - GI/Abdominal Exam GI & Abdominal Exam: Soft, Normal Bowel Sounds - Extremities Exam Extremities Exam: Full ROM. absent: Calf Tenderness - Back Exam Back Exam: Full ROM - Neurological Exam Neurological Exam: Alert, Awake, Oriented x3 - Psychiatric Exam Psychiatric exam: Normal Affect, Normal Mood - Skin Skin Exam: Diaphoretic, Warm Assessment and Plan - Assessment and Plan (Free Text) Assessment: 67 yo M with PMH of HTN, nephrolithiasis, thyroid CA (s/p total thyroidectomy), DM2, CAD (s/p stents in ), prostate CA (s/p radiation treatment), and COPD presents to ED with sepsis 2/2 pyelonephritis. Plan: Urosepsis - Likely 2/2 underlying pyelonephritis - UA with TNTC pyuria, leukocyte eserase, large blood - CTAP: mild perinephric stranding around R kidney; both renal collecting systems and ureters mildly dilated, no obstructing uretal stones. Layer of calcium in R side of bladder. - lactate: 2.6, 1.7, 4.3, 1.5 - no leukocytosis, pt has been febrile Tmax 101.5; currently afebrile - Rapid response called today: lactate was 4.3, given 1L bolus fluids, one time dose Vanc, restarted zosyn, ID consulted - Repeat VBG shock panel after rapid response: pH 7.44, pCO2 32, HCO3 21.7, Lactate 1.5 - repeat blood cultures - bladder scan: 382 cc urine, talbot inserted 400 cc nolan urine with sediment after insertion of talbot - pt put on tele for close monitoring of vitals - HIV test per ID - Continue NS @ 150 cc/hr - f/u procal - strict I&O ANIBAL - Cr. 2.3, BUN 44 - Likely 2/2 underlying sepsis and/or dehydration - Continue NS @ 150 - F/u FeNa - Continue to monitor - Hold lisinopril Hx DM2 - HA1C 7.6 - blood glucose 261 - hold oral home meds - ISS medium - continue levemir 6 units bedtime - HHD and consistent carb diet Ppx - heparin - protonix Pt seen and examined, assessment and plan discussed with Dr. Steven Singh PGY1 <Jose Maria Harris - Last Filed: 07/19/18 17:51> Objective - Vital Signs/Intake and Output Vital Signs (last 24 hours): Temp Pulse Resp BP Pulse Ox 98.2 F 80 20 160/79 H 95 07/19/18 06:00 07/19/18 15:04 07/19/18 06:00 07/19/18 15:04 07/19/18 06:00 Intake and Output: 07/19/18 07/19/18 06:59 18:59 Intake Total 1890 1320 Output Total 2900 2000 Balance -1010 -680 - Labs Labs: 07/19/18 06:00 07/19/18 06:00 Attending/Attestation - Attestation I have personally seen and examined this patient.: Yes I have fully participated in the care of the patient.: Yes I have reviewed all pertinent clinical information, including history, physical exam and plan: Yes Notes (Text): 07/19/18 17:51 Medical record note made by the resident after discussion with my direction and input after the patient was personally seen and examined by me. I have reviewed the chart and agree that the record accurately reflects by personal performance of the history, physical exam, data review, and medical decision-making, in the course for the patient. I have also personally directed the plan of care
[2018-07-17] MEDS ORDERED: Piperacillin/Tazobact 3.375 gm 100 ML IVPB SCH (22:00)
[2018-07-17] MEDS: Insulin Detemir 100 units/ml Vial (Levemir) SC SCH (22:23)
[2018-07-17] MEDS: Piperacillin/Tazobact 3.375 gm 100 ML IVPB SCH (22:25)
[2018-07-18 04:09] VITALS: RESP 20; O2SAT 95
[2018-07-18] MEDS: Pantoprazole 40 mg EC Tab PO SCH (06:13)
[2018-07-18] MEDS: Sodium Chloride 0.9% 1,000 ML IV SCH ×4 (06:15→20:00)
[2018-07-18 07:25] LABS: GRAN # 7.79 (1.4-6.5); GRAN % 92.2 % (50.0-68.0); HEMOGLOBIN 12.4 g/dL (14.0-18.0); LYMPH # 0.3 (1.2-3.4); LYMPH % 3.9 % (22.0-35.0); MEAN CELL VOLUME 87.9 fl (80.0-105.0); MEAN CORPUSCULAR HGB CONC 34.2 g/dl (31.0-37.0); MEAN PLATELET VOLUME 11.8 fl (7.0-11.0); MONO # 0.3 (0.1-0.6); MONO % 3.9 % (1.0-6.0); RBC 4.13 10^6/uL (3.5-6.1); RED CELL DISTRIBUTION WIDTH 14.2 % (11.5-14.5); WHITE BLOOD COUNT 8.5 10^3/uL (4.5-11.0)
[2018-07-18 07:38] LABS: ALBUMIN 3.2 g/dL (3.0-4.8); CALCIUM 7.5 mg/dL (8.4-10.5)
--- NOTE | 2018-07-18 07:42 | CP.PCM.CON ---
History of Present Illness - History of Present Illness History of Present Illness: 67 yo M w/ PMH of HTN, DM, CAD (s/p stents in ), COPD, nephrolithiasis, prostate CA (s/p radiation treatment), thyroid CA (s/p total thyroidectomy), presented to ED with fever and chills; admitted for UTI sepsis/pyelonephritis, nephrology being consulted for acute renal failure; Patient reports being in his usual state of health up until a few days ago when he started having decreased urine output (interestingly he correlates this with his newfound consumption of V8 vegetable juice); about 3 days ago, patient starting having rigorous chills that he describes as "convulsions"; he denies any dysuria; appetite has been somewhat decreased during this time; he denies any associated nausea/vomiting or diarrhea; denies any shortness of breath although was found to be hypoxic during [employer] that was called earlier today when patient again had chills; In ED, patient was found to have mildly elevated lactate level and was started on IV antibiotics with ceftrixone; repeat lactate level improved, however, only to rebound again today; patient has had antibiotics upgraded to zosyn and given one dose of vanco today; Review of Systems - Constitutional Constitutional: As Per HPI - EENT Eyes: absent: Blurred Vision Nose/Mouth/Throat: absent: Dysphagia - Cardiovascular Cardiovascular: absent: Chest Pain, Palpitations - Respiratory Respiratory: As Per HPI - Gastrointestinal Gastrointestinal: As Per HPI - Genitourinary Genitourinary: As Per HPI - Musculoskeletal Additional comments: occasional arthralgias, uses only tylenol; - Neurological Neurological: absent: Dizziness, Numbness Past Patient History - Past Social History Smoking Status: Former Smoker - CARDIAC Hx Cardiac Disorders: Yes (Angioplasty) Hx Angina: No Hx Cardia Arrhythmia: No Hx Circulatory Problems: No Hx Congestive Heart Failure: No Hx Heart Murmur: No Hx Heart Transplant: No Hx Hypercholesterolemia: No Hx Hypertension: Yes Hx Internal Defibrillator: No Hx Mitral Valve Prolapse: No Hx Pacemaker: No Hx Peripheral Edema: No Hx Peripheral Vascular Disease: No - PULMONARY Hx Respiratory Disorders: No Hx Asthma: Yes Hx Bronchitis: No Hx Chronic Obstructive Pulmonary Disease (COPD): Yes Hx Emphysema: No Hx Pneumonia: Yes (Had it as a kid) Hx Respiratory Aspiration: No Hx Respiratory Tract Infection: No Hx Sleep Apnea: No Hx Tuberculosis: No - NEUROLOGICAL Hx Neurological Disorder: No Hx Alzheimer's Disease: No HX Cerebrovascular Accident: No Hx Dementia: No Hx Dizziness: No Hx Meningitis: No Hx Migraine: No Hx Parkinson's Disease: No Hx Seizures: No Hx Transient Ischemic Attacks (TIA): No - HEENT Hx HEENT Problems: No Hx Blind: No Hx Cataracts: No Hx Deafness: No Hx Difficulty Chewing: No Hx Epistaxis: No Hx Glaucoma: No Hx Macular Degeneration: No - RENAL Hx Chronic Kidney Disease: No Hx Dialysis: No Hx Kidney Stones: Yes Hx Neurogenic Bladder: No Hx Pyelonephritis: No Hx Renal (Kidney) Cancer: No Hx Renal Failure: No - ENDOCRINE/METABOLIC Hx Endocrine Disorders: No Hx Adrenal Cancer: No Hx Diabetes Insipidus: No Hx Diabetes Mellitus Type 2: No Hx Hyperthyroidism: No Hx Hypothyroidism: Yes Hx Systemic Lupus Erythematosus: No - HEMATOLOGICAL/ONCOLOGICAL Hx Blood Disorders: No Hx AIDS: No Hx Anemia: No Hx Cancer: Yes (Tyroid cancer) Hx Chemotherapy: No Hx Cirrhosis: No Hx Hemophilia: No Hx Hepatitis A: No Hx Hepatitis B: No Hx Hepatitis C: No Hx Human Immunodeficiency Virus (HIV): No Hx Metastesis: No Hx Shingles: No Hx Sickle Cell Disease: No Hx Unexplained Bleeding: No - INTEGUMENTARY Hx Dermatological Problems: No Hx Basil Cell: No Hx Eczema: No Hx Melanoma: No Hx Psoriasis: No Hx Squamous Cell: No - MUSCULOSKELETAL/RHEUMATOLOGICAL Hx Musculoskeletal Disorders: No Hx Arthritis: Yes (Shoulders and kneed) Hx Back Pain: No Hx Degenerative Joint Disease: No Hx Falls: Yes Hx Fractures: No Hx Gout: No Hx Herniated Disk: No Hx Myasthenia Gravis: No Hx Osteoarthritis: No Hx Osteomyelitis: No Hx Osteoporosis: No Hx Rhabdomyolysis: No Hx Spinal Stenosis: No Hx Unsteady Gait: No - GASTROINTESTINAL Hx Gastrointestinal Disorders: No Hx Colostomy: No Hx Crohn's Disease: No Hx Diverticulitis: No Hx Gall Bladder Disease: No Hx Gastroesophageal Reflux: No Hx Ileostomy: No Hx Liver Failure: No Hx Pancreatitis: No HX Swallowing Problems: No Hx Ulcer: No - GENITOURINARY/GYNECOLOGICAL Hx Genitourinary Disorders: No Hx Hematuria: No Hx Incontinence: No Hx Prostate Problems: No Hx Sexually Transmitted Disorders: No Hx Urinary Tract Infection: No - PSYCHIATRIC Hx Psychophysiologic Disorder: No Hx Anxiety: No Hx Bipolar Disorder: No Hx Depression: No Hx Emotional Abuse: No Hx Hallucinations: No Hx Panic Symptoms: No Hx Paranoia: No Hx Post Traumatic Stress Disorder: No Hx Psychosis: No Hx Physical Abuse: No Hx Schizophrenia: No Hx Sexual Abuse: No - SURGICAL HISTORY Hx Surgeries: No Hx Amputation: No Hx Appendectomy: No Hx Cardiac Catheterization: No Hx Cholecystectomy: No Hx Coronary Stent: No Hx Gastric Bypass Surgery: No Hx Hysterectomy: No Hx Joint Replacement: No Hx Kidney Transplant: No Hx Liver Transplant: No Hx Mastectomy: No Hx Musculoskeletal Surgery: No Hx Open Heart Surgery: No Hx Orthopedic Surgery: No Hx Splenectomy: No Hx Valve Replacement: No - ANESTHESIA Hx Anesthesia: Yes Hx Anesthesia Reactions: No Hx Malignant Hyperthermia: No Meds Allergies/Adverse Reactions: Allergies Allergy/AdvReac Type Severity Reaction Status Date / Time No Known Allergies Allergy Verified 02/28/13 10:44 - Medications Medications: Current Medications Acetaminophen (Tylenol 325mg Tab) 650 mg PO Q6H PRN PRN Reason: Fever >100.4 F Last Admin: 07/17/18 15:06 Dose: 650 mg Atorvastatin Calcium (Lipitor) 10 mg PO DIN [facility] Last Admin: 07/17/18 17:51 Dose: 10 mg Dextrose (Dextrose 50% Inj) 0 ml IV STAT PRN; Protocol PRN Reason: Hypoglycemia Protocol Heparin Sodium (Porcine) (Heparin) 5,000 units SC Q12 [facility]; Protocol Last Admin: 07/17/18 22:22 Dose: 5,000 units Hydralazine HCl (Apresoline) 10 mg IVP Q6 PRN PRN Reason: Systolic Blood Pressure Last Admin: 07/17/18 15:05 Dose: 10 mg Hydralazine HCl (Apresoline) 25 mg PO TID [facility] Last Admin: 07/17/18 17:50 Dose: 25 mg Sodium Chloride (Sodium Chloride 0.9%) 1,000 mls @ 150 mls/hr IV .Q6H40M [facility] Last Admin: 07/18/18 06:15 Dose: 150 mls/hr Dextrose (Dextrose 5% In Water 1000 Ml) 1,000 mls @ 0 mls/hr IV .Q0M [facility]; Protocol PRN Reason: Hypoglycemia Protocol Piperacillin Sod/Tazobactam Sod (Zosyn 3.375 In Ns 100ml) 100 mls @ 25 mls/hr IVPB Q12 [facility]; Protocol Stop: 07/26/18 22:01 Last Admin: 07/17/18 22:25 Dose: 25 mls/hr Insulin Detemir (Levemir) 6 unit SC HS [facility] Last Admin: 07/17/18 22:23 Dose: 6 units Insulin Human Regular (Humulin R Med) 0 units SC ACHS [facility]; Protocol Last Admin: 07/17/18 22:23 Dose: 3 u Levothyroxine Sodium (Synthroid) 200 mcg PO DAILY [facility] Last Admin: 07/17/18 09:38 Dose: 200 mcg Methylprednisolone (Solu-Medrol) 40 mg IVP Q12 [facility] Last Admin: 07/17/18 22:23 Dose: 40 mg Pantoprazole Sodium (Protonix Ec Tab) 40 mg PO 0600 [facility] Last Admin: 07/18/18 06:13 Dose: 40 mg Physical Exam - Constitutional Appears: Non-toxic, No Acute Distress - Eye Exam Eye Exam: Normal appearance. absent: Scleral icterus - ENT Exam ENT Exam: Mucous Membranes Moist - Respiratory Exam Respiratory Exam: Clear to Auscultation Bilateral. absent: Respiratory Distress - Cardiovascular Exam Cardiovascular Exam: Irregular Rhythm, +S1, +S2 - GI/Abdominal Exam GI & Abdominal Exam: Soft. absent: Distended, Tenderness - Exam Exam: absent: Bladder Distension Additional comments: talbot in place - Extremities Exam Extremities exam: Positive for: pedal pulses present Additional comments: no leg edema; - Neurological Exam Neurological exam: Alert Additional comments: no resting tremor; - Psychiatric Exam Psychiatric exam: Normal Mood - Skin Skin Exam: Warm Additional comments: no cyanosis Results - Vital Signs Recent Vital Signs: Last Vital Signs Temp 98.5 F 07/18/18 00:01 Pulse 70 07/18/18 06:00 Resp 20 07/18/18 00:01 BP 157/87 H 07/18/18 00:01 Pulse Ox 95 07/18/18 00:01 - Labs Result Diagrams: 07/18/18 06:15 07/17/18 15:20 Labs: Laboratory Results - last 24 hr 07/16/18 07/16/18 07/17/18 14:54 15:00 06:20 WBC RBC Hgb Hct MCV MCH MCHC RDW Plt Count MPV Gran % Lymph % (Auto) Kings % (Auto) Eos % (Auto) Baso % (Auto) Gran # Lymph # (Auto) Kings # (Auto) Eos # (Auto) Baso # (Auto) pCO2 pO2 26 L HCO3 ABG pH ABG Total CO2 ABG O2 Saturation ABG Base Excess ABG Potassium VBG pH 7.37 VBG pCO2 51.0 VBG HCO3 29.5 H VBG Total CO2 31.1 H VBG O2 Sat (Calc) 50.0 VBG Base Excess 3.1 H VBG Potassium 4.0 Sodium 136.0 Chloride 96.0 L Glucose 306 H Lactate 2.6 H FiO2 21.0 Potassium Carbon Dioxide Anion Gap BUN Creatinine Est GFR ( Amer) Est GFR (Non-Af Amer) POC Glucose (mg/dL) Random Glucose Hemoglobin A1c 7.6 H Calcium Total Bilirubin AST ALT Alkaline Phosphatase Troponin I Total Protein Albumin Globulin Albumin/Globulin Ratio Procalcitonin 28.20 H Arterial Blood Potassium Venous Blood Potassium 4.0 Ur Random Creatinine Ur Random Sodium Influenza Typ A,B (EIA) 07/17/18 07/17/18 07/17/18 08:30 10:41 14:19 WBC RBC Hgb Hct MCV MCH MCHC RDW Plt Count MPV Gran % Lymph % (Auto) Kings % (Auto) Eos % (Auto) Baso % (Auto) Gran # Lymph # (Auto) Kings # (Auto) Eos # (Auto) Baso # (Auto) pCO2 pO2 HCO3 ABG pH ABG Total CO2 ABG O2 Saturation ABG Base Excess ABG Potassium VBG pH VBG pCO2 VBG HCO3 VBG Total CO2 VBG O2 Sat (Calc) VBG Base Excess VBG Potassium Sodium Chloride Glucose Lactate FiO2 Potassium Carbon Dioxide Anion Gap BUN Creatinine Est GFR ( Amer) Est GFR (Non-Af Amer) POC Glucose (mg/dL) 239 H 270 H Random Glucose Hemoglobin A1c Calcium Total Bilirubin AST ALT Alkaline Phosphatase Troponin I Total Protein Albumin Globulin Albumin/Globulin Ratio Procalcitonin Arterial Blood Potassium Venous Blood Potassium Ur Random Creatinine Ur Random Sodium Influenza Typ A,B (EIA) Negative for flu a/b 07/17/18 07/17/18 07/17/18 14:35 15:20 15:30 WBC RBC Hgb Hct MCV MCH MCHC RDW Plt Count MPV Gran % Lymph % (Auto) Kings % (Auto) Eos % (Auto) Baso % (Auto) Gran # Lymph # (Auto) Kings # (Auto) Eos # (Auto) Baso # (Auto) pCO2 39 pO2 104.0 H HCO3 21.0 ABG pH 7.34 L ABG Total CO2 22.2 ABG O2 Saturation 98.4 H ABG Base Excess -4.4 L ABG Potassium 3.8 VBG pH VBG pCO2 VBG HCO3 VBG Total CO2 VBG O2 Sat (Calc) VBG Base Excess VBG Potassium Sodium 140.0 140 Chloride 106.0 104 Glucose 255 H Lactate 4.3 H* FiO2 50.0 Potassium 3.4 L Carbon Dioxide 24 Anion Gap 16 BUN 44 H Creatinine 2.3 H Est GFR ( Amer) 35 Est GFR (Non-Af Amer) 29 POC Glucose (mg/dL) 240 H Random Glucose 283 H Hemoglobin A1c Calcium 8.2 L Total Bilirubin 1.5 H AST 33 ALT 40 Alkaline Phosphatase 89 Troponin I 0.04 Total Protein 7.3 Albumin 3.6 Globulin 3.7 Albumin/Globulin Ratio 1.0 L Procalcitonin Arterial Blood Potassium 3.8 Venous Blood Potassium Ur Random Creatinine Ur Random Sodium Influenza Typ A,B (EIA) 07/17/18 07/17/18 07/17/18 15:54 15:54 16:34 WBC 8.6 RBC 4.67 Hgb 14.3 Hct 41.0 L MCV 87.8 MCH 30.6 MCHC 34.9 RDW 14.1 Plt Count 136 MPV 11.2 H Gran % Lymph % (Auto) Kings % (Auto) Eos % (Auto) Baso % (Auto) Gran # Lymph # (Auto) Kings # (Auto) Eos # (Auto) Baso # (Auto) pCO2 pO2 HCO3 ABG pH ABG Total CO2 ABG O2 Saturation ABG Base Excess ABG Potassium VBG pH VBG pCO2 VBG HCO3 VBG Total CO2 VBG O2 Sat (Calc) VBG Base Excess VBG Potassium Sodium Chloride Glucose Lactate FiO2 Potassium Carbon Dioxide Anion Gap BUN Creatinine Est GFR ( Amer) Est GFR (Non-Af Amer) POC Glucose (mg/dL) 261 H Random Glucose Hemoglobin A1c Calcium Total Bilirubin AST ALT Alkaline Phosphatase Troponin I Total Protein Albumin Globulin Albumin/Globulin Ratio Procalcitonin 25.63 H Arterial Blood Potassium Venous Blood Potassium Ur Random Creatinine Ur Random Sodium Influenza Typ A,B (EIA) 07/17/18 07/17/18 07/17/18 16:47 18:45 21:21 WBC RBC Hgb Hct MCV MCH MCHC RDW Plt Count MPV Gran % Lymph % (Auto) Kings % (Auto) Eos % (Auto) Baso % (Auto) Gran # Lymph # (Auto) Kings # (Auto) Eos # (Auto) Baso # (Auto) pCO2 pO2 106 H HCO3 ABG pH ABG Total CO2 ABG O2 Saturation ABG Base Excess ABG Potassium VBG pH 7.44 H VBG pCO2 32.0 L VBG HCO3 21.7 VBG Total CO2 22.7 VBG O2 Sat (Calc) 98.4 H VBG Base Excess -1.6 L VBG Potassium 3.3 L Sodium 136.0 Chloride 101.0 Glucose 392 H Lactate 1.5 FiO2 21.0 Potassium Carbon Dioxide Anion Gap BUN Creatinine Est GFR ( Amer) Est GFR (Non-Af Amer) POC Glucose (mg/dL) 350 H Random Glucose Hemoglobin A1c Calcium Total Bilirubin AST ALT Alkaline Phosphatase Troponin I Total Protein Albumin Globulin Albumin/Globulin Ratio Procalcitonin Arterial Blood Potassium Venous Blood Potassium 3.3 L Ur Random Creatinine 50 Ur Random Sodium 91 Influenza Typ A,B (EIA) 07/18/18 07/18/18 02:40 06:15 WBC 8.5 RBC 4.13 Hgb 12.4 L Hct 36.3 L MCV 87.9 MCH 30.0 MCHC 34.2 RDW 14.2 Plt Count 157 MPV 11.8 H Gran % 92.2 H Lymph % (Auto) 3.9 L Kings % (Auto) 3.9 Eos % (Auto) 0.0 L Baso % (Auto) 0.0 Gran # 7.79 H Lymph # (Auto) 0.3 L Kings # (Auto) 0.3 Eos # (Auto) 0.0 Baso # (Auto) 0.00 pCO2 pO2 HCO3 ABG pH ABG Total CO2 ABG O2 Saturation ABG Base Excess ABG Potassium VBG pH VBG pCO2 VBG HCO3 VBG Total CO2 VBG O2 Sat (Calc) VBG Base Excess VBG Potassium Sodium Chloride Glucose Lactate FiO2 Potassium Carbon Dioxide Anion Gap BUN Creatinine Est GFR ( Amer) Est GFR (Non-Af Amer) POC Glucose (mg/dL) 349 H Random Glucose Hemoglobin A1c Calcium Total Bilirubin AST ALT Alkaline Phosphatase Troponin I Total Protein Albumin Globulin Albumin/Globulin Ratio Procalcitonin Arterial Blood Potassium Venous Blood Potassium Ur Random Creatinine Ur Random Sodium Influenza Typ A,B (EIA) - Imaging and Cardiology CT scan - abdomen Status: Image reviewed by me Additional comment: showing bilateral hydronephrosis Assessment & Plan (1) Acute renal failure Assessment and Plan: Multifactorial; likely ATN in the setting of sepsis from UTI but also obstructive uropathy with bilateral hydronephrosis seen prior to talbot insertion; history of prostate CA and has had suggestive urinary symptoms; agree with aggressive intravascular volume repletion in the setting of ongoing sepsis, respiratory status appears stable despite events that occurred earlier today; -continue IV antibiotics per ID recs; will need to monitor renal function closely to decide on dosing moving forward; -continue IVF w/ NS at 150 cc/hr; -avoid nephrotoxic agents (NSAIDS, phosphate enema, etc); -agree with obtaining urology assessment (especially given obstructive uropathy and history of prostate CA); Status: Acute (2) Sepsis Assessment and Plan: Lactate improved; monitor closely; f/u urine culture; Status: Acute (3) HTN (hypertension) Assessment and Plan: BP elevated; currently getting hydralazine only; was on bystolic at home, recommend restarting B-conchis with at least low dose metoprolol if tachycardia ensues; Status: Acute (4) Obstructive uropathy Assessment and Plan: With history of prostate CA; also with history of nephrolithiasis (thinks he had calcium stones) though no recent occurrence; CT report mentioning area of bladder calcification, significance unclear; awaiting urology; -checking urine cytology; Status: Acute (5) Lactic acidosis Status: Acute (6) Nephrolithiasis Status: Chronic (7) Prostate CA Status: Chronic - Assessment and Plan (Free Text) Assessment: Thank you for this referral, we will be following closely.
[2018-07-18] MEDS ORDERED: Insulin Detemir 100 units/ml Vial (Levemir) SC SCH (07:46)
[2018-07-18] MEDS: Insulin Reg-MEDIUM-Coverage SC SCH ×2 (08:57→13:51)
[2018-07-18] MEDS: Piperacillin/Tazobact 3.375 gm 100 ML IVPB SCH ×2 (10:45→22:25)
[2018-07-18] MEDS: MethylPREDNISolone 40 mg Vial IVP SCH (10:46)
[2018-07-18] MEDS: Levothyroxine 200 MCG TAB PO SCH (10:46)
[2018-07-18] MEDS: Insulin Reg-HIGH-Coverage SC SCH ×3 (12:17→23:32)
[2018-07-18] MEDS: POLYETHYLENE GLYCOL 3350 17 GM/Dose PACKET PO SCH (13:50)
--- NOTE | 2018-07-18 16:17 | CP.PCM.PN ---
<Sal Singh - Last Filed: 07/18/18 16:14> Subjective - Date & Time of Evaluation Date of Evaluation: 07/18/18 Time of Evaluation: 07:00 - Subjective Subjective: Pt seen and examined this morning. Pt reports feeling much better since yesterday. Denies chest pain, SOB Objective - Vital Signs/Intake and Output Vital Signs (last 24 hours): Temp Pulse Resp BP Pulse Ox 97.6 F 78 20 169/95 H 95 07/18/18 12:00 07/18/18 14:22 07/18/18 12:00 07/18/18 14:22 07/18/18 00:01 Intake and Output: 07/18/18 07/18/18 06:59 18:59 Intake Total 2640 Output Total 2400 Balance 240 - Medications Medications: Current Medications Acetaminophen (Tylenol 325mg Tab) 650 mg PO Q6H PRN PRN Reason: Fever >100.4 F Last Admin: 07/17/18 15:06 Dose: 650 mg Atorvastatin Calcium (Lipitor) 10 mg PO DIN [facility] Last Admin: 07/17/18 17:51 Dose: 10 mg Dextrose (Dextrose 50% Inj) 0 ml IV STAT PRN; Protocol PRN Reason: Hypoglycemia Protocol Heparin Sodium (Porcine) (Heparin) 5,000 units SC Q8 [facility]; Protocol Last Admin: 07/18/18 14:22 Dose: 5,000 units Hydralazine HCl (Apresoline) 10 mg IVP Q6 PRN PRN Reason: Systolic Blood Pressure Last Admin: 07/17/18 15:05 Dose: 10 mg Hydralazine HCl (Apresoline) 25 mg PO TID [facility] Last Admin: 07/18/18 14:22 Dose: 25 mg Sodium Chloride (Sodium Chloride 0.9%) 1,000 mls @ 150 mls/hr IV .Q6H40M [facility] Last Admin: 07/18/18 12:19 Dose: Not Given Dextrose (Dextrose 5% In Water 1000 Ml) 1,000 mls @ 0 mls/hr IV .Q0M PRN; Pro tocol PRN Reason: Hypoglycemia Protocol Piperacillin Sod/Tazobactam Sod (Zosyn 3.375 In Ns 100ml) 100 mls @ 25 mls/hr IVPB Q12 [facility]; Protocol Stop: 11/08/18 22:01 Last Admin: 07/18/18 10:45 Dose: 25 mls/hr Insulin Detemir (Levemir) 10 unit SC [facility] Insulin Human Regular (Humulin R High) 0 units SC ACHS [facility]; Protocol Last Admin: 07/18/18 12:17 Dose: 7 units Levothyroxine Sodium (Synthroid) 200 mcg PO DAILY [facility] Last Admin: 07/18/18 10:46 Dose: 200 mcg Pantoprazole Sodium (Protonix Ec Tab) 40 mg PO 0600 [facility] Last Admin: 07/18/18 06:13 Dose: 40 mg Polyethylene Glycol (Miralax) 17 gm PO DAILY [facility] Last Admin: 07/18/18 13:50 Dose: Not Given Prednisone (Prednisone Tab) 40 mg PO DAILY [facility] - Labs Labs: 07/18/18 06:15 07/18/18 06:15 - Constitutional Appears: Non-toxic, No Acute Distress - Head Exam Head Exam: ATRAUMATIC, NORMAL INSPECTION, NORMOCEPHALIC - Eye Exam Eye Exam: EOMI - ENT Exam ENT Exam: Mucous Membranes Moist - Neck Exam Neck Exam: Full ROM - Respiratory Exam Respiratory Exam: Clear to Ausculation Bilateral, NORMAL BREATHING PATTERN. absent: Accessory Muscle Use, Wheezes, Respiratory Distress - Cardiovascular Exam Cardiovascular Exam: +S1, +S2. absent: Diastolic murmur, Murmur - GI/Abdominal Exam GI & Abdominal Exam: Soft, Normal Bowel Sounds - Extremities Exam Extremities Exam: Full ROM. absent: Pedal Edema - Neurological Exam Neurological Exam: Alert, Awake, Oriented x3 - Psychiatric Exam Psychiatric exam: Normal Affect, Normal Mood - Skin Skin Exam: Dry, Intact, Warm Assessment and Plan - Assessment and Plan (Free Text) Assessment: 67 yo M with PMH of HTN, nephrolithiasis, thyroid CA (s/p total thyroidectomy), DM2, CAD (s/p stents in ), prostate CA (s/p radiation treatment), and COPD presents to ED with sepsis 2/2 right sided pyelonephritis. Plan: Urosepsis, Gram Negative Bacterimea 2/2 pyelonephritis - UA with TNTC pyuria, leukocyte eserase, large blood - CTAP: mild perinephric stranding around R kidney; both renal collecting systems and ureters mildly dilated, no obstructing uretal stones. Layer of calcium in R side of bladder. - lactate: 2.6, 1.7, 4.3, 1.5 - no leukocytosis, pt has been febrile Tmax 101.5; currently afebrile - Repeat VBG shock panel after rapid response: pH 7.44, pCO2 32, HCO3 21.7, Lactate 1.5 - Blood cultures x2: Gram negative rods - Urine cx: Gram negative rods - Repeat blood cultures - bladder scan: 382 cc urine, talbot inserted 400 cc nolan urine with sediment after insertion of talbot - pt put on tele for close monitoring of vitals - F/u HIV test results - Continue NS @ 150 cc/hr - Procal: 25.63 - strict I&O: today +240 - F/u Echo - Prednisone 40mg for 2 weeks - miralax ANIBAL - Cr. 1.9, BUN 40 - Likely 2/2 underlying sepsis and/or dehydration - Continue NS @ 150 - FeNa: 2.5% - Hold lisinopril - Nephro, Dr Roberts multifactorial likely ATN, rec beta conchis Hx DM2 - HA1C 7.6 - blood glucose 345 - hold oral home meds - ISS high - continue levemir 10 units bedtime - HHD and consistent carb diet Ppx - heparin - protonix Pt seen, examined, assessment and plan discussed with Dr Steven Singh PGY1 <Jose Maria Harris - Last Filed: 07/19/18 17:51> Objective - Vital Signs/Intake and Output Vital Signs (last 24 hours): Temp Pulse Resp BP Pulse Ox 98.2 F 80 20 160/79 H 95 07/19/18 06:00 07/19/18 15:04 07/19/18 06:00 07/19/18 15:04 07/19/18 06:00 Intake and Output: 07/19/18 07/19/18 06:59 18:59 Intake Total 1890 1320 Output Total 2900 2000 Balance -1010 -680 - Labs Labs: 07/19/18 06:00 07/19/18 06:00 Attending/Attestation - Attestation I have personally seen and examined this patient.: Yes I have fully participated in the care of the patient.: Yes I have reviewed all pertinent clinical information, including history, physical exam and plan: Yes Notes (Text): 07/19/18 17:51 Medical record note made by the resident after discussion with my direction and input after the patient was personally seen and examined by me. I have reviewed the chart and agree that the record accurately reflects by personal performance of the history, physical exam, data review, and medical decision-making, in the course for the patient. I have also personally directed the plan of care
[2018-07-18] MEDS ORDERED: Insulin Reg-HIGH-Coverage SC SCH (16:30)
--- NOTE | 2018-07-18 19:15 | CON ---
DATE OF CONSULTATION: 07/18/2018 The patient is in bed in no acute distress, nontoxic. CHIEF COMPLAINT: Fever for several days. HISTORY OF PRESENT ILLNESS: This is a 67-year-old male with a history of hypertension, nephrolithiasis, thyroid cancer, diabetes mellitus, coronary artery disease, prostate cancer, who has had radiation, also with chronic obstructive lung disease, long-time ex-smoker, who was admitted with a fever. Infectious consultation was requested. PAST MEDICAL HISTORY: Significant for hypertension, nephrolithiasis, thyroid cancer, diabetes, coronary artery disease, prostate cancer with radiation, chronic obstructive lung disease, thyroidectomy and cardiac stents. PAST SURGICAL HISTORY: Significant for thyroidectomy and cardiac stents. MEDICATIONS AT HOME: Omeprazole, Januvia, statin and lisinopril. ALLERGIES: THE PATIENT HAS NO KNOWN ALLERGIES. REVIEW OF SYSTEMS: A 14-point review of systems is performed. The patient has fevers and chills, dysuria. No chest pain or shortness of breath or cough. No headaches or blurred vision. No abdominal pain, diarrhea or constipation. No bright red blood per rectum and no melena. PHYSICAL EXAMINATION: The patient is in bed with a temperature of 98, T-max was 104.5 with a pulse of up to 100 and now it is down to 70; respiratory rate of 20, it was 21; blood pressure is 157/80. Examination of HEENT is unremarkable. Neck is supple. Lungs have decreased breath sounds. Heart exam is normal S1 and S2. Abdominal examination is soft, nontender. No rebound or guarding. There is no CVA tenderness. LABORATORY EXAMINATION: Reveals a white count of 10,000, hemoglobin of 14, platelets of 165, 85% granulocytosis. Chemistries reveal a BUN of 40, creatinine of 1.9. The patient's creatinine on admission was 2.3; prior to that, in 02/2013, it was 1.1. Urinalysis is significant for too numerous to count wbc's, large bacteria. Influenza serology is negative. Microbiology is pending. The patient had a CAT scan of the abdomen, which showed a right pyelonephritis, and a chest x-ray, which was negative. Rapid Response was called. History and physical examination is reviewed. ASSESSMENT/PLAN: This is a 67-year-old male who is retired now, admitted with severe sepsis with right pyelonephritis with acute kidney injury. We will treat the patient with Zosyn, pending blood cultures, urine cultures, and we will order an HIV because of his age. Urology consultation is pending. We will make further recommendations upon availability of initial results and we will follow closely with you. Ray Hunter MD
--- NOTE | 2018-07-18 19:20 | PCM.FALL ---
<Iggy Mason - Last Filed: 07/19/18 05:35> Post Fall Progress Note - Post Fall Fall Date: 07/18/18 - Post Fall Exam Vital Sign: Temp Pulse Resp BP Pulse Ox 97.7 F 94 H 20 212/108 H 95 07/18/18 17:25 07/18/18 18:53 07/18/18 17:25 07/18/18 18:53 07/18/18 00:01 Impression/Plan: Iggy Mason- Internal Medicine Resident- Code Star Note Subjective: Patient seen and examined at bedside. Patient experienced a witnessed fall. As per staff, the patient was positioned at the edge of bed and tripped on his sock causing him bend at the knees. No part of the body contacted the floor. Patient and staff, along with , endorse that the patient did not lose consciousness or experience seizure like activity. Patient himself denies any new symptoms. Denies associated weakness and sensory changes in his upper/lower extremities bilaterally. Patient denied dizziness, loss of consciousness, tongue biting, confusion, palpitations, auditory/visual changes from baseline, and focal deficits. Further denies fever, chills, chest pain, shortness of breath, nausea, vomiting, diarrhea, and constipation. 12 point ROS negative except as indicated in HPI Physical Examination: - Constitutional Appears: Well, Non-toxic, No Acute Distress - Head Exam Head Exam: ATRAUMATIC, NORMAL INSPECTION, NORMOCEPHALIC - Eye Exam Eye Exam: EOMI, Normal appearance - ENT Exam ENT Exam: Mucous Membranes Moist, Normal Exam, No tongue laceration - Neck Exam Neck exam: Positive for: Full Rom, Normal Inspection - Respiratory Exam Respiratory Exam: Clear to Auscultation Bilateral, NORMAL BREATHING PATTERN. absent: Accessory Muscle Use, Rales, Rhonchi, Wheezes, Respiratory Distress - Cardiovascular Exam Cardiovascular Exam: REGULAR RHYTHM, +S1, +S2 - GI/Abdominal Exam GI & Abdominal Exam: Normal Bowel Sounds, Soft. absent: Distended, Firm, Guarding, Rebound, Rigid, Tenderness - Extremities Exam Extremities exam: Positive for: full ROM, normal capillary refill, normal inspection, pedal pulses present - Back Exam Back exam: NORMAL INSPECTION, no step off sign, no midline tenderness, no paraspinal tenderness - Neurological Exam Neurological exam: awake, alert, orientated x 3, responds to verbal stimuli, answers questions appropriately, follows commands, moves extremities past midline, ambulates without overt difficultly, muscle strength 5/5 bilateral upper and lower extremities, sensation is intact to touch throughout, CNII-CNXII intact bilaterally, no dysmetria - Psychiatric Exam Psychiatric exam: Normal Affect, Normal Mood - Skin Skin Exam: Intact, Normal Color, Warm Assessment and Plan: Patient is a 67 year old male with a PMHx of HTN, nephrolithiasis, thyroid CA (s/p total thyroidectomy), DM2, CAD (s/p stents in ), prostate CA (s/p radiation treatment), and COPD who was admitted for evaluation and treatment of sepsis 2/2 right sided pyelonephritis. Code star called on patient. Mechanical Fall - Patient is on DVT prophylaxis via subq heparin, no trauma to head or body- no need for imaging at this time - hold subq heparin for now - patient education provided to take extra precaution when transferring from bed - fall endorsed to primary team - no further intervention at this time <Jose Maria Harris - Last Filed: 07/19/18 17:50> Post Fall Progress Note - Post Fall Exam Vital Sign: Temp Pulse Resp BP Pulse Ox 98.2 F 80 20 160/79 H 95 07/19/18 06:00 07/19/18 15:04 07/19/18 06:00 07/19/18 15:04 07/19/18 06:00
[2018-07-19] MEDS: Pantoprazole 40 mg EC Tab PO SCH (06:14)
[2018-07-19 06:44] LABS: ALB/GLOB RATIO 0.9 (1.1-1.8); CALCIUM 8.1 mg/dL (8.4-10.5)
[2018-07-19 06:45] VITALS: BP 160/79; PULSE 80; TEMP 98.2
[2018-07-19 07:05] LABS: BASO # 0.02 K/mm3 (0.0-2.0); BASO % 0.2 % (0.0-3.0); GRAN # 7.73 (1.4-6.5); GRAN % 82.2 % (50.0-68.0); HEMOGLOBIN 12.5 g/dL (14.0-18.0); LYMPH # 0.7 (1.2-3.4); LYMPH % 7.8 % (22.0-35.0); MEAN CELL VOLUME 86.6 fl (80.0-105.0); MEAN CORPUSCULAR HEMOGLOBIN 29.5 pg (25.0-35.0); MEAN CORPUSCULAR HGB CONC 34.1 g/dl (31.0-37.0); MEAN PLATELET VOLUME 11.2 fl (7.0-11.0); MONO # 0.9 (0.1-0.6); MONO % 9.8 % (1.0-6.0); RBC 4.24 10^6/uL (3.5-6.1); WHITE BLOOD COUNT 9.4 10^3/uL (4.5-11.0)
--- NOTE | 2018-07-19 08:05 | CP.PCM.PN ---
Subjective - Date & Time of Evaluation Date of Evaluation: 07/18/18 Time of Evaluation: 11:00 - Subjective Subjective: Patient reports feeling well; no sob; tolerating diet; no nausea/vomiting; Objective - Vital Signs/Intake and Output Vital Signs (last 24 hours): Temp Pulse Resp BP Pulse Ox 98.2 F 80 20 160/79 H 95 07/19/18 06:00 07/19/18 06:00 07/19/18 06:00 07/19/18 06:00 07/19/18 06:00 Intake and Output: 07/19/18 07/19/18 06:59 18:59 Intake Total 1890 Output Total 2900 Balance -1010 - Medications Medications: Current Medications Acetaminophen (Tylenol 325mg Tab) 650 mg PO Q6H PRN PRN Reason: Fever >100.4 F Last Admin: 07/17/18 15:06 Dose: 650 mg Atorvastatin Calcium (Lipitor) 10 mg PO DIN [facility] Last Admin: 07/18/18 18:29 Dose: 10 mg Dextrose (Dextrose 50% Inj) 0 ml IV STAT PRN; Protocol PRN Reason: Hypoglycemia Protocol Heparin Sodium (Porcine) (Heparin) 5,000 units SC Q8 [facility]; Protocol Last Admin: 07/18/18 23:32 Dose: Not Given Hydralazine HCl (Apresoline) 10 mg IVP Q6 PRN PRN Reason: Systolic Blood Pressure Last Admin: 07/18/18 18:53 Dose: 10 mg Hydralazine HCl (Apresoline) 25 mg PO TID [facility] Last Admin: 07/18/18 18:29 Dose: 25 mg Dextrose (Dextrose 5% In Water 1000 Ml) 1,000 mls @ 0 mls/hr IV .Q0M PRN; Protocol PRN Reason: Hypoglycemia Protocol Piperacillin Sod/Tazobactam Sod (Zosyn 3.375 In Ns 100ml) 100 mls @ 25 mls/hr IVPB Q12 [facility]; Protocol Stop: 07/26/18 22:01 Last Admin: 07/18/18 22:25 Dose: 25 mls/hr Sodium Chloride (Sodium Chloride 0.9%) 1,000 mls @ 60 mls/hr IV .[id number] [facility] Last Admin: 07/18/18 20:00 Dose: 60 mls/hr Insulin Detemir (Levemir) 10 unit SC HS [facility] Last Admin: 07/18/18 22:30 Dose: 10 units Insulin Human Regular (Humulin R High) 0 units SC ACHS [facility]; Protocol Last Admin: 07/18/18 23:32 Dose: 3 units Levothyroxine Sodium (Synthroid) 200 mcg PO DAILY [facility] Last Admin: 07/18/18 10:46 Dose: 200 mcg Pantoprazole Sodium (Protonix Ec Tab) 40 mg PO 0600 [facility] Last Admin: 07/19/18 06:14 Dose: Not Given Polyethylene Glycol (Miralax) 17 gm PO DAILY [facility] Last Admin: 07/18/18 13:50 Dose: Not Given Prednisone (Prednisone Tab) 40 mg PO DAILY [facility] - Labs Labs: 07/19/18 06:00 07/19/18 06:00 - Constitutional Appears: Non-toxic, No Acute Distress - Eye Exam Eye Exam: Normal appearance - ENT Exam ENT Exam: Mucous Membranes Moist - Respiratory Exam Respiratory Exam: Clear to Ausculation Bilateral. absent: Respiratory Distress - Cardiovascular Exam Cardiovascular Exam: RRR, +S1, +S2 - GI/Abdominal Exam GI & Abdominal Exam: Soft. absent: Distended, Tenderness - Extremities Exam Additional comments: no leg edema; - Neurological Exam Neurological Exam: Alert, Awake - Psychiatric Exam Psychiatric exam: Normal Mood. absent: Agitated - Skin Skin Exam: Warm. absent: Cyanosis Assessment and Plan (1) Acute renal failure Assessment & Plan: ANIBAL on mild CKD (baseline serum creatinine ~1.1); resolving; multifactorial, sepsis induced ATN as well as obstructive nephropathy; stable volume and electrolyte status; -decreasing IVF to NS at 60 cc/hr as patient is markedly hypertensive; -maintain talbot; will start flomax; -f/u with urology; -avoid nephrotoxic agents; Status: Acute (2) Sepsis Assessment & Plan: On zosyn, may need to dose adjust for improving renal function; f/u with ID; Status: Acute (3) HTN (hypertension) Assessment & Plan: Continue hydralazine; decreasing IVF as above; Status: Acute (4) Obstructive uropathy Status: Acute (5) Lactic acidosis Status: Acute (6) Nephrolithiasis Status: Chronic (7) Prostate CA Status: Chronic
[2018-07-19] MEDS: Insulin Reg-HIGH-Coverage SC SCH ×2 (08:33→13:37)
[2018-07-19] MEDS ORDERED: cefTRIAXone 1 gm 1 GM/100 ML BAG IVPB SCH (10:15)
[2018-07-19] MEDS: Levothyroxine 200 MCG TAB PO SCH (11:40)
[2018-07-19] MEDS: POLYETHYLENE GLYCOL 3350 17 GM/Dose PACKET PO SCH (11:41)
[2018-07-19] MEDS: Sodium Chloride 0.9% 1,000 ML IV SCH (11:41)
[2018-07-19] MEDS ORDERED: Potassium Chloride 20 mEq ER Tab PO ONE (11:59)
--- NOTE | 2018-07-19 14:22 | PN ---
DATE: 07/19/2018 SUBJECTIVE: The patient and his were at the bedside today. I saw the patient. No fevers, no chills. He is much improved. PHYSICAL EXAMINATION: VITAL SIGNS: Temperature is 98, blood pressure is 160/70, respiratory rate of 20, heart rate of 82. HEENT: Unremarkable. NECK: Supple. LUNGS: Decreased breath sounds. HEART: Normal S1, S2. ABDOMEN: Soft, nontender. LABORATORY EXAMINATION: Reveals a white count of 9.4, hemoglobin of 12, platelets of 197. Chemistries reveals a BUN of 36, creatinine of 1.5 and which is improved and the patient's procalcitonin is elevated and the urinalysis is noted. Serology; HIV is negative, influenza is negative. The patient has E. coli in the blood, which is pansensitive and E. coli in the urine also pansensitive, both resistant to ampicillin and repeat blood cultures are no growth at 24 hours and the patient's chest x-ray no active disease. An event note is reviewed. Dr. Roberts's note is reviewed. ASSESSMENT AND PLAN: A 67-year-old with a history of hypertension, nephrolithiasis, thyroid cancer, diabetes mellitus, coronary artery disease and prostate cancer who has chronic obstructive lung disease and long time ex-smoker admitted with fever, nephrolithiasis and admitted with severe sepsis, right pyelonephritis, acute kidney injury on Zosyn, may switch to p.o. Augmentin or p.o. Keflex. Recommend p.o. Keflex on discharge for a total of 14 days. The patient's repeat cultures are negative. He has been afebrile. He can follow up with Urology. Ray Hunter MD
--- NOTE | 2018-07-19 14:58 | CP.PCM.DIS ---
<FranciscoCarolyneSal Romario - Last Filed: 07/19/18 16:46> Provider - Provider Date of Admission: 07/16/18 16:09 Attending physician: Jose Maria Harris MD Primary care physician: Champ Cantu MD Time Spent in preparation of Discharge (in minutes): 40 Diagnosis - Discharge Diagnosis (1) Pyelonephritis Status: Acute Priority: High (2) Sepsis Status: Acute Priority: High (3) ANIBAL (acute kidney injury) Status: Acute Priority: High (4) Diabetes Status: Chronic Priority: High Hospital Course - Lab Results Lab Results: Micro Results 07/16/18 14:54 Blood-Venous Blood Culture - Final Escherichia Coli 07/16/18 14:54 Blood-Venous Gram Stain - Final 07/16/18 14:30 Blood-Venous Blood Culture - Final Escherichia Coli 07/16/18 14:30 Blood-Venous Gram Stain - Final 07/16/18 15:16 Urine,Clean Catch Urine Culture - Final Escherichia Coli 07/17/18 15:54 Blood Blood Culture - Preliminary NO GROWTH AFTER 24 HOURS Most Recent Lab Values WBC 9.4 10^3/uL (4.5-11.0) 07/19/18 06:00 RBC 4.24 10^6/uL (3.5-6.1) 07/19/18 06:00 Hgb 12.5 g/dL (14.0-18.0) L 07/19/18 06:00 Hct 36.7 % (42.0-52.0) L 07/19/18 06:00 MCV 86.6 fl (80.0-105.0) 07/19/18 06:00 MCH 29.5 pg (25.0-35.0) 07/19/18 06:00 MCHC 34.1 g/dl (31.0-37.0) 07/19/18 06:00 RDW 14.0 % (11.5-14.5) 07/19/18 06:00 Plt Count 197 10^3/uL (120.0-450.0) 07/19/18 06:00 MPV 11.2 fl (7.0-11.0) H 07/19/18 06:00 Gran % 82.2 % (50.0-68.0) H 07/19/18 06:00 Lymph % (Auto) 7.8 % (22.0-35.0) L 07/19/18 06:00 [place] % (Auto) 9.8 % (1.0-6.0) H 07/19/18 06:00 Eos % (Auto) 0.0 % (1.5-5.0) L 07/19/18 06:00 Baso % (Auto) 0.2 % (0.0-3.0) 07/19/18 06:00 Gran # 7.73 (1.4-6.5) H 07/19/18 06:00 Lymph # (Auto) 0.7 (1.2-3.4) L 07/19/18 06:00 [place] # (Auto) 0.9 (0.1-0.6) H 07/19/18 06:00 Eos # (Auto) 0.0 (0.0-0.7) 07/19/18 06:00 Baso # (Auto) 0.02 K/mm3 (0.0-2.0) 07/19/18 06:00 Neutrophils % (Manual) 85 % (50.0-70.0) H 07/16/18 14:54 Lymphocytes % (Manual) 5 % (22.0-35.0) L 07/16/18 14:54 Monocytes % (Manual) 10 % (1.0-6.0) H 07/16/18 14:54 Platelet Evaluation Normal (NORMAL) 07/16/18 14:54 pCO2 39 mm/Hg (35-45) 07/17/18 14:35 pO2 106 mm/Hg (30-55) H 07/17/18 18:45 HCO3 21.0 mmol/L (21-28) 07/17/18 14:35 ABG pH 7.34 (7.35-7.45) L 07/17/18 14:35 ABG Total CO2 22.2 mmol.L (22-28) 07/17/18 14:35 ABG O2 Saturation 98.4 % (95-98) H 07/17/18 14:35 ABG Base Excess -4.4 mmol/L (-2.0-3.0) L 07/17/18 14:35 ABG Potassium 3.8 mmol/L (3.6-5.2) 07/17/18 14:35 VBG pH 7.44 (7.32-7.43) H 07/17/18 18:45 VBG pCO2 32.0 (40-60) L 07/17/18 18:45 VBG HCO3 21.7 mmol/l (21-28) 07/17/18 18:45 VBG Total CO2 22.7 mmol.L (22-28) 07/17/18 18:45 VBG O2 Sat (Calc) 98.4 % (40-65) H 07/17/18 18:45 VBG Base Excess -1.6 mmol/L (0.0-2.0) L 07/17/18 18:45 VBG Potassium 3.3 mmol/L (3.6-5.2) L 07/17/18 18:45 Sodium 136.0 mmol/L (132-148) 07/17/18 18:45 Chloride 101.0 mmol/L (98-107) 07/17/18 18:45 Glucose 392 mg/dl (75-110) H 07/17/18 18:45 Lactate 1.5 mmol/L (0.7-2.1) 07/17/18 18:45 FiO2 21.0 % 07/17/18 18:45 Sodium 137 mmol/L (132-148) 07/19/18 06:00 Potassium 3.4 mmol/L (3.6-5.0) L 07/19/18 06:00 Chloride 105 mmol/L (98-107) 07/19/18 06:00 Carbon Dioxide 23 mmol/L (21-33) 07/19/18 06:00 Anion Gap 12 (10-20) 07/19/18 06:00 BUN 36 mg/dL (7-21) H 07/19/18 06:00 Creatinine 1.5 mg/dl (0.8-1.5) 07/19/18 06:00 Est GFR ( Amer) 57 07/19/18 06:00 Est GFR (Non-Af Amer) 47 07/19/18 06:00 POC Glucose (mg/dL) 352 mg/dL (65-110) H 07/18/18 21:49 Random Glucose 275 mg/dL (70-110) H 07/19/18 06:00 Hemoglobin A1c 7.6 % (4.2-6.5) H 07/17/18 06:20 Calcium 8.1 mg/dL (8.4-10.5) L 07/19/18 06:00 Phosphorus 2.8 mg/dL (2.5-4.5) 07/17/18 06:20 Magnesium 2.3 mg/dL (1.7-2.2) H 07/17/18 06:20 Total Bilirubin 0.9 mg/dL (0.2-1.3) 07/19/18 06:00 AST 28 U/L (17-59) 07/19/18 06:00 ALT 40 U/L (7-56) 07/19/18 06:00 Alkaline Phosphatase 65 U/L (38-126) 07/19/18 06:00 Troponin I 0.03 ng/mL D 07/18/18 06:30 Total Protein 6.3 g/dL (5.8-8.3) 07/19/18 06:00 Albumin 3.0 g/dL (3.0-4.8) 07/19/18 06:00 Globulin 3.3 gm/dL 07/19/18 06:00 Albumin/Globulin Ratio 0.9 (1.1-1.8) L 07/19/18 06:00 Triglycerides 244 mg/dL (35-160) H 07/17/18 06:20 Cholesterol 149 mg/dL (130-200) 07/17/18 06:20 LDL Cholesterol Direct 82 mg/dL (0-129) 07/17/18 06:20 HDL Cholesterol 17 mg/dL (29-60) L 07/17/18 06:20 Procalcitonin 25.63 NG/ML (0.19-0.49) H 07/17/18 15:54 Arterial Blood Potassium 3.8 mmol/L (3.6-5.2) 07/17/18 14:35 Venous Blood Potassium 3.3 mmol/L (3.6-5.2) L 07/17/18 18:45 Urine Color Yellow (YELLOW) 07/16/18 15:16 Urine Appearance Slight-cloudy (CLEAR) 07/16/18 15:16 Urine pH 6.0 (4.7-8.0) 07/16/18 15:16 Ur Specific [place] 1.020 (1.005-1.035) 07/16/18 15:16 Urine Protein 100 mg/dL (<30 mg/dL) H 07/16/18 15:16 Urine Glucose (UA) 250 mg/dL (NEGATIVE) H 07/16/18 15:16 Urine Ketones Negative mg/dL (NEGATIVE) 07/16/18 15:16 Urine Blood Large (NEGATIVE) H 07/16/18 15:16 Urine Nitrate Negative (NEGATIVE) 07/16/18 15:16 Urine Bilirubin Negative (NEGATIVE) 07/16/18 15:16 Urine Urobilinogen 1.0 E.U./dL (<1 E.U./dL) H 07/16/18 15:16 Ur Leukocyte Esterase Moderate Jason/uL (NEGATIVE) H 07/16/18 15:16 Urine RBC 5 - 10 /hpf (0-2) 07/16/18 15:16 Urine WBC Tntc /hpf (0-6) 07/16/18 15:16 Ur Epithelial Cells 0 - 2 /hpf (0-5) 07/16/18 15:16 Urine Bacteria Large (NEG) 07/16/18 15:16 Ur Random Creatinine 50 mg/dL 07/17/18 16:47 Ur Random Sodium 91 meq/L 07/17/18 16:47 HIV 1&2 Ag/Ab, 4th Gen Nonreactive (Nonreactive) 07/18/18 06:15 Influenza Typ A,B (EIA) Negative for flu a/b (NEGATIVE) 07/17/18 08:30 - Hospital Course Hospital Course: Pt is a 67 year old male with PMH of HTN, nephrolithiasis, thyroid CA (s/p total thyroidectomy), DM2, CAD (s/p stents in ), prostate CA (s/p radiation treatment), and COPD presented to ED with worsening fever, chills, lethargy, increased urinary frequency, and dysuria. His states that he has been feeling worse for the past few days and has had worsening dysuria. Pt reported taking his temperature at home which he states was 102.5F for which he took Tylenol. This prompted them to go and see his PMH, Dr. Cantu, who advised them to go to ED for further evaluation. During his admission, pt met sepsis criteria in the ED. Pt was given IF fluids and started broad spectrum IV antibiotics. UA showed TNTC pyuria, LE, and large blood. CT abdomen and pelvis showed mild perinephric stranding around the right kidney, bilateral dilation of the renal collecting systems and ureters. And calcium in the right side of the bladder. Nephrotoxic medication were held. Pt was started on IV rocephin. A rapid response was callled for SOB and shivering. Vitals were not stable, sats 90% HR 110's BP 220/90. Temp of 101.1F, lactate 4.3. He was given solumedrol, 2 duoneb treatments, one time dose of vancomycin and started on zosyn. Bladder scan reveled 382cc of urine, talbot was inserted with nolan urine return and sediments. ID and nephrology were consulted, blood cultures and urine cultures were positive for E. coli. Pt also had an ANIBAL likely secondary to the sepsis. Pt was started on flomax. Pt symptoms continue to improved on broad spectrum antibiotics and his sepsis resolved. Pt was discharged on Prednisone 40 for 2 more days to finish course. Pt discharged on keflex 500mg TID for the next 2 weeks. Pt was also given a script for albuterol. Pt advised to follow up with his primary care physician, his urologist and to return to the hospital if his symptoms returned or worsened. - Date & Time of H&P Date of H&P: 07/19/18 Time of H&P: 06:00 Discharge Exam - Head Exam Head Exam: ATRAUMATIC, NORMAL INSPECTION, NORMOCEPHALIC - Eye Exam Eye Exam: EOMI Pupil Exam: NORMAL ACCOMODATION - ENT Exam ENT Exam: Mucous Membranes Moist - Respiratory Exam Respiratory Exam: NORMAL BREATHING PATTERN, UNREMARKABLE. absent: Accessory Muscle Use, Wheezes, Respiratory Distress - Cardiovascular Exam Cardiovascular Exam: RRR, +S1, +S2. absent: Diastolic murmur, Systolic Murmur - GI/Abdominal Exam GI & Abdominal Exam: Normal Bowel Sounds, Soft, Unremarkable - Neurological Exam Neurological exam: Alert, CN II-XII Intact, Oriented x3 - Skin Skin Exam: Dry, Normal Color, Warm Discharge Plan - Discharge Medications Prescriptions: RX: Albuterol HFA [Ventolin HFA 90 mcg/actuation (8 g)] 1 puff IH PRN PRN #1 inhaler PRN Reason: Wheezing Cephalexin [Keflex] 500 mg PO TID 14 Days #42 capsule RX: Prednisone 40 mg PO DAILY #2 tab.ds.pk - Follow Up Plan Condition: STABLE Disposition: HOME/ ROUTINE Instructions: Diabetes Diet , Acute Kidney Failure (DC), Diabetes Type 2 (DC), Sepsis, Adult (DC), Urinary Obstruction (DC), Urinary Retention (DC), Urinary Tract Infection in Men (DC) Additional Instructions: 1. please follow up with your primary care physician within 1 week 2. please resume taking your medications as directed 3. please take your antibiotics Kefex as directed 4. please take your Prednisone for the next two days 5. please complete your blood work within 1 week 6. if your symptoms return or worsen, go to the nearest emergency department as soon as possible Referrals: Ray Hunter MD [Staff Provider] - Ivan Hathaway MD [Staff Provider] - Stephen Roberts MD [Staff Provider] - Champ Cantu MD [Primary Care Provider] - <Jose Maria Harris - Last Filed: 07/19/18 17:49> Provider - Provider Date of Admission: 07/16/18 16:09 Attending physician: Jose Maria Harris MD Primary care physician: Champ Cantu MD Hospital Course - Lab Results Lab Results: Micro Results 07/17/18 15:54 Blood Blood Culture - Preliminary NO GROWTH AFTER 48 HOURS 07/16/18 14:54 Blood-Venous Blood Culture - Final Escherichia Coli 07/16/18 14:54 Blood-Venous Gram Stain - Final 07/16/18 14:30 Blood-Venous Blood Culture - Final Escherichia Coli 07/16/18 14:30 Blood-Venous Gram Stain - Final 07/16/18 15:16 Urine,Clean Catch Urine Culture - Final Escherichia Coli Most Recent Lab Values WBC 9.4 10^3/uL (4.5-11.0) 07/19/18 06:00 RBC 4.24 10^6/uL (3.5-6.1) 07/19/18 06:00 Hgb 12.5 g/dL (14.0-18.0) L 07/19/18 06:00 Hct 36.7 % (42.0-52.0) L 07/19/18 06:00 MCV 86.6 fl (80.0-105.0) 07/19/18 06:00 MCH 29.5 pg (25.0-35.0) 07/19/18 06:00 MCHC 34.1 g/dl (31.0-37.0) 07/19/18 06:00 RDW 14.0 % (11.5-14.5) 07/19/18 06:00 Plt Count 197 10^3/uL (120.0-450.0) 07/19/18 06:00 MPV 11.2 fl (7.0-11.0) H 07/19/18 06:00 Gran % 82.2 % (50.0-68.0) H 07/19/18 06:00 Lymph % (Auto) 7.8 % (22.0-35.0) L 07/19/18 06:00 [place] % (Auto) 9.8 % (1.0-6.0) H 07/19/18 06:00 Eos % (Auto) 0.0 % (1.5-5.0) L 07/19/18 06:00 Baso % (Auto) 0.2 % (0.0-3.0) 07/19/18 06:00 Gran # 7.73 (1.4-6.5) H 07/19/18 06:00 Lymph # (Auto) 0.7 (1.2-3.4) L 07/19/18 06:00 [place] # (Auto) 0.9 (0.1-0.6) H 07/19/18 06:00 Eos # (Auto) 0.0 (0.0-0.7) 07/19/18 06:00 Baso # (Auto) 0.02 K/mm3 (0.0-2.0) 07/19/18 06:00 Neutrophils % (Manual) 85 % (50.0-70.0) H 07/16/18 14:54 Lymphocytes % (Manual) 5 % (22.0-35.0) L 07/16/18 14:54 Monocytes % (Manual) 10 % (1.0-6.0) H 07/16/18 14:54 Platelet Evaluation Normal (NORMAL) 07/16/18 14:54 pCO2 39 mm/Hg (35-45) 07/17/18 14:35 pO2 106 mm/Hg (30-55) H 07/17/18 18:45 HCO3 21.0 mmol/L (21-28) 07/17/18 14:35 ABG pH 7.34 (7.35-7.45) L 07/17/18 14:35 ABG Total CO2 22.2 mmol.L (22-28) 07/17/18 14:35 ABG O2 Saturation 98.4 % (95-98) H 07/17/18 14:35 ABG Base Excess -4.4 mmol/L (-2.0-3.0) L 07/17/18 14:35 ABG Potassium 3.8 mmol/L (3.6-5.2) 07/17/18 14:35 VBG pH 7.44 (7.32-7.43) H 07/17/18 18:45 VBG pCO2 32.0 (40-60) L 07/17/18 18:45 VBG HCO3 21.7 mmol/l (21-28) 07/17/18 18:45 VBG Total CO2 22.7 mmol.L (22-28) 07/17/18 18:45 VBG O2 Sat (Calc) 98.4 % (40-65) H 07/17/18 18:45 VBG Base Excess -1.6 mmol/L (0.0-2.0) L 07/17/18 18:45 VBG Potassium 3.3 mmol/L (3.6-5.2) L 07/17/18 18:45 Sodium 136.0 mmol/L (132-148) 07/17/18 18:45 Chloride 101.0 mmol/L (98-107) 07/17/18 18:45 Glucose 392 mg/dl (75-110) H 07/17/18 18:45 Lactate 1.5 mmol/L (0.7-2.1) 07/17/18 18:45 FiO2 21.0 % 07/17/18 18:45 Sodium 137 mmol/L (132-148) 07/19/18 06:00 Potassium 3.4 mmol/L (3.6-5.0) L 07/19/18 06:00 Chloride 105 mmol/L (98-107) 07/19/18 06:00 Carbon Dioxide 23 mmol/L (21-33) 07/19/18 06:00 Anion Gap 12 (10-20) 07/19/18 06:00 BUN 36 mg/dL (7-21) H 07/19/18 06:00 Creatinine 1.5 mg/dl (0.8-1.5) 07/19/18 06:00 Est GFR ( Amer) 57 07/19/18 06:00 Est GFR (Non-Af Amer) 47 07/19/18 06:00 POC Glucose (mg/dL) 240 mg/dL (65-110) H 07/19/18 11:01 Random Glucose 275 mg/dL (70-110) H 07/19/18 06:00 Hemoglobin A1c 7.6 % (4.2-6.5) H 07/17/18 06:20 Calcium 8.1 mg/dL (8.4-10.5) L 07/19/18 06:00 Phosphorus 2.8 mg/dL (2.5-4.5) 07/17/18 06:20 Magnesium 2.3 mg/dL (1.7-2.2) H 07/17/18 06:20 Total Bilirubin 0.9 mg/dL (0.2-1.3) 07/19/18 06:00 AST 28 U/L (17-59) 07/19/18 06:00 ALT 40 U/L (7-56) 07/19/18 06:00 Alkaline Phosphatase 65 U/L (38-126) 07/19/18 06:00 Troponin I 0.03 ng/mL D 07/18/18 06:30 Total Protein 6.3 g/dL (5.8-8.3) 07/19/18 06:00 Albumin 3.0 g/dL (3.0-4.8) 07/19/18 06:00 Globulin 3.3 gm/dL 07/19/18 06:00 Albumin/Globulin Ratio 0.9 (1.1-1.8) L 07/19/18 06:00 Triglycerides 244 mg/dL (35-160) H 07/17/18 06:20 Cholesterol 149 mg/dL (130-200) 07/17/18 06:20 LDL Cholesterol Direct 82 mg/dL (0-129) 07/17/18 06:20 HDL Cholesterol 17 mg/dL (29-60) L 07/17/18 06:20 Procalcitonin 25.63 NG/ML (0.19-0.49) H 07/17/18 15:54 Arterial Blood Potassium 3.8 mmol/L (3.6-5.2) 07/17/18 14:35 Venous Blood Potassium 3.3 mmol/L (3.6-5.2) L 07/17/18 18:45 Urine Color Yellow (YELLOW) 07/16/18 15:16 Urine Appearance Slight-cloudy (CLEAR) 07/16/18 15:16 Urine pH 6.0 (4.7-8.0) 07/16/18 15:16 Ur Specific [place] 1.020 (1.005-1.035) 07/16/18 15:16 Urine Protein 100 mg/dL (<30 mg/dL) H 07/16/18 15:16 Urine Glucose (UA) 250 mg/dL (NEGATIVE) H 07/16/18 15:16 Urine Ketones Negative mg/dL (NEGATIVE) 07/16/18 15:16 Urine Blood Large (NEGATIVE) H 07/16/18 15:16 Urine Nitrate Negative (NEGATIVE) 07/16/18 15:16 Urine Bilirubin Negative (NEGATIVE) 07/16/18 15:16 Urine Urobilinogen 1.0 E.U./dL (<1 E.U./dL) H 07/16/18 15:16 Ur Leukocyte Esterase Moderate Jason/uL (NEGATIVE) H 07/16/18 15:16 Urine RBC 5 - 10 /hpf (0-2) 07/16/18 15:16 Urine WBC Tntc /hpf (0-6) 07/16/18 15:16 Ur Epithelial Cells 0 - 2 /hpf (0-5) 07/16/18 15:16 Urine Bacteria Large (NEG) 07/16/18 15:16 Ur Random Creatinine 50 mg/dL 07/17/18 16:47 Ur Random Sodium 91 meq/L 07/17/18 16:47 HIV 1&2 Ag/Ab, 4th Gen Nonreactive (Nonreactive) 07/18/18 06:15 Influenza Typ A,B (EIA) Negative for flu a/b (NEGATIVE) 07/17/18 08:30 Attending/Attestation - Attestation I have personally seen and examined this patient.: Yes I have fully participated in the care of the patient.: Yes I have reviewed all pertinent clinical information, including history, physical exam and plan: Yes Notes (Text): 07/19/18 17:43 Medical record note made by the resident after discussion with my direction and input after the patient was personally seen and examined by me. I have reviewed the chart and agree that the record accurately reflects by personal performance of the history, physical exam, data review, and medical decision-making, in the course for the patient. I have also personally directed the plan of care. 67 year old male with PMH of HTN, nephrolithiasis, thyroid CA (s/p total thyroidectomy), DM2, CAD (s/p stents in ), prostate CA , and COPD was admitted with sepsis due to Pyelonephritis and acute renal failure. Patient blood culture grew E coli.He was treated with IV hydration, IV zosyn.He has responded well to the therapy.He was also treated for COPD exacerbation. He is afebrile at the time of discharge and is feeling at his base line.He is on room air ,HGis cough, dyspnea and hypoxia has improved.His creatinine has come down from 2.5 to 1.5.His Talbot catheter was discontinued prior to discharge.Patient did void prior to discharge. Patient will need repeat BMP in one week with PCP. Management plan was discussed in detail with patient and . Education was provided.
[2018-07-19] MEDS: Piperacillin/Tazobact 3.375 gm 100 ML IVPB SCH (15:06)
--- NOTE | 2018-07-19 20:42 | CON ---
DATE OF CONSULTATION: 07/18/2018 CHIEF COMPLAINT: Urinary frequency and urgency. HISTORY OF PRESENT ILLNESS: This is a 67-year-old male who is seen in his room at [facility]. The patient had been previously seen by me in the office for similar complaints. About a month prior to admission, he was scheduled for a uroflow exam and a postvoid residual given his complaint of urinary frequency and urgency. A urine culture had been sent, which showed some contamination, otherwise was negative. The patient did not have the exams performed, which were initially ordered. He was also ordered to have a renal ultrasound, which he eventually did have, which was read as normal. The patient now presented to the hospital complaining of urinary frequency, urgency as well as a fever, chills and lethargy along with worsening dysuria. The patient appeared acutely ill at the time of admission. He was admitted to the hospital for evaluation and treatment. He was thought to be septic and he was started on broad-spectrum antibiotics. Blood and urine cultures were sent. The blood cultures have come back positive for E. coli as well as the urine culture. He had a CT scan done and report of possible pyelonephritis. He was admitted for treatment and a consultation was requested. During the admission, the patient had an episode of possible shortness of breath. The patient and his report he was having anxiety and they called a code sepsis. He was eventually transferred to the telemetry unit where the patient is currently being seen. Today, he reports feeling much better. He denies any further fever or chills. He did have a catheter placed. Therefore, he has no current symptoms of frequency, urgency or dysuria. PAST MEDICAL HISTORY: Significant for hypertension, nephrolithiasis, thyroid cancer, diabetes, coronary artery disease. There is a history in the chart of prostate cancer and possible radiation treatment, although the patient does not report this has been true, and a history of COPD. PAST SURGICAL HISTORY: Thyroidectomy and cardiac stents. FAMILY HISTORY: Noncontributory for this admission. SOCIAL HISTORY: Positive for smoking, but quit years ago. Denies EtOH or drug use. MEDICATIONS AT HOME: Omeprazole, Bystolic, pravastatin, levothyroxine, lisinopril, Januvia, and glimepiride. REVIEW OF SYSTEMS: The patient is currently feeling improved. Positives as per the HPI. For psychiatric, does report anxiety. For pulmonary, does report a chronic cough and shortness of breath. For cardiac, denies any current chest pain or palpitations. For GI, denies any diarrhea or constipation. No nausea or vomiting. For neurologic, denies any numbness or low back pain. Other systems are negative. PHYSICAL EXAMINATION: The patient is awake and alert. He is in no acute distress. He is answering questions appropriately. His is present. He has been afebrile. Temperature of 97.6, pulse of 71, BP 169/95, respirations 20. His neck is supple. There is no adenopathy noted. Exam of the chest reveals normal inspiratory effort. Cardiac exam shows positive S1 and S2. There is no peripheral edema. On abdominal exam, the abdomen is soft, nontender, nondistended. There is no hepatosplenomegaly. There is no costovertebral angle tenderness. On exam, phallus is normal. There is a Weston catheter in place draining clear colored urine. Scrotum is normal. Testes are bilaterally descended, nontender, no masses. Epididymis are normal. Extremities, there is no cyanosis or edema. LABORATORY EXAMINATION: The patient's WBC count was 10.3 on admission, which has come down to 8.5, hemoglobin of 12.4. The patient's sugars have been running high. Creatinine was elevated at 1.9 with a GFR of 36 from today. This is improved from a GFR of 29 on the day of admission. Procalcitonin was high on day of admission. On microbiology, blood culture is positive for E. coli, urine positive for E. coli as well. On radiologic exam, the patient had a CT scan of the abdomen and pelvis from 07/16/2018, which showed mild perinephric stranding around the right kidney. Both renal collecting systems were mildly dilated. Ureters were also mildly dilated. There were no obstructing stones. There is a layer of calcium in the right side of the bladder with no discrete stone seen in the bladder. IMPRESSION AND PLAN: This is a 67-year-old male admitted with apparent urosepsis. Likely, this is from cystitis and his diabetes. I doubt there is significant pyelonephritis as the patient has no signs or symptoms of pyelonephritis, he has no flank pain or CVA tenderness. There is some streakiness noted on the CT scan, but more likely this is a cystitis, which progressed to sepsis. Plan for now is to maintain the patient on broad-spectrum IV antibiotics as per ID recommendation. I would leave the Weston catheter in place for now and the patient has been started on tamsulosin, which he should take daily. We will plan on catheter removal for a voiding trial and need to check his postvoid residual. The patient had a recent renal ultrasound with no fullness or hydronephrosis noted. It is unclear on the current CT scan, but likely he had some urinary retention, although there was only reportedly 300 mL in his bladder when the Weston was placed. We will plan on repeat upper tract imaging after the Weston is removed and he is emptying adequately. As for the CT finding of the layer of calcium in the bladder, the patient is going to need a cystoscopy at some point after the infection has cleared and most likely will need a prostate laser vaporization or other procedure done on his prostate to help with his lower urinary tract symptoms. As for the history of prostate cancer, we will need to investigate this further. He did have a PSA in the office, which was elevated, and if he did not have a history of prostate cancer, he will need to have a prostate biopsy done at some point to rule out prostate cancer. We will plan on a voiding trial after discussion with ID regarding the length of IV antibiotics and I will continue to follow the patient closely with you. Ivan Hathaway MD
== END 2018-07-19 17:03 | disposition home or self-care (01) | DRG 871 ==
LOC: ED 12:14 → ERH 16:09 → 5RNO 19:00 → 2RNO 07-17 16:29
PROVIDERS: ADMIT Internal Medicine; ATTEND Internal Medicine
PROC: 0T9B70Z Drainage of Bladder with Drainage Device, Via Natural or Artificial Opening (ICD-10-PCS; principal; 2018-07-17)
DX: A41.9 Sepsis, unspecified organism (principal); N17.0 Acute kidney failure with tubular necrosis; N12 Tubulo-interstitial nephritis, not specified as acute or chronic; N13.8 Other obstructive and reflux uropathy; E87.2 Acidosis; J44.1 Chronic obstructive pulmonary disease with (acute) exacerbation; E89.0 Postprocedural hypothyroidism; R65.20 Severe sepsis without septic shock; I12.9 Hypertensive chronic kidney disease with stage 1 through stage 4 chronic kidney disease, or unspecified chronic kidney disease; N18.2 Chronic kidney disease, stage 2 (mild); I25.10 Atherosclerotic heart disease of native coronary artery without angina pectoris; R09.02 Hypoxemia; N20.0 Calculus of kidney; E11.22 Type 2 diabetes mellitus with diabetic chronic kidney disease; E86.0 Dehydration; B96.20 Unspecified Escherichia coli [E. coli] as the cause of diseases classified elsewhere; Z85.46 Personal history of malignant neoplasm of prostate; Z85.850 Personal history of malignant neoplasm of thyroid; Z92.3 Personal history of irradiation; Z87.891 Personal history of nicotine dependence; Z87.442 Personal history of urinary calculi; Z79.84 Long term (current) use of oral hypoglycemic drugs; Z95.5 Presence of coronary angioplasty implant and graft